=== PATIENT | female | born 1955 | race Caucasian/White ===

== ENCOUNTER 2018-07-06 06:16 | Inpatient (IN) | payer OTHER ==
[2018-07-06] VITALS (15 sets, daily range): BP systolic 124–160; BP diastolic 81–108; PULSE 72–99; RESP 11–32; Ht 162.6 cm; Wt 68.2 kg
[~2018-07-06] VITALS: Ht 162.6 cm; Wt 68.2 kg
[2018-07-06] MEDS ORDERED: CEFAZOLIN 2 GM/50 ML (PMX) 50 ML IVPB SCH (12:30)
[2018-07-06] MEDS ORDERED: SOD CHLORIDE 0.9% 1,000 ML IV SCH (12:30)
[2018-07-06] MEDS ORDERED: ISOSULFAN BLUE 1% 5 ML INJ SC ONE (12:32)
--- NOTE | 2018-07-06 13:25 | PREAC ---
Date/Time of Note Date/Time of Note DATE: 07/06/18 TIME: 13:23 Anesthesia Eval and Record Evaluation Time Pre-Procedure Interview DATE: 07/06/18 TIME: 13:23 Age 62 Sex female NPO: 8 hrs Preoperative diagnosis Breast Cancer Planned procedure Bilateral Mastectomy Past Medical History Past Medical History: Includes Cardio: HTN Pulm: Smoking Hx (one pack per week), COPD Neuro: Other (Neuropathy lower extremities) Hepatic: Other (IBD) Heme: Anemia Surgery & Anesthesia Issues No known issue Meds Anticoagulation: No Beta Roderick within 24 hr: No Reason Beta Roderick not given: Pt. not on B-Roderick No Active Prescriptions or Reported Meds Current Medications Cefazolin Sodium/ Dextrose 50 ml @ 100 mls/hr PRE-OP IVPB ; Start 07/06/18 at 12:30 Sodium Chloride 1,000 ml @ 75 mls/hr [id number] IV ; Start 07/06/18 at 12:30; Stop 07/06/18 at 20:00 Meds reviewed: Yes Allergies Coded Allergies: No Known Drug Allergy (Verified Allergy, Unknown, 07/06/18) Allergies Reviewed: Yes Labs/Studies Labs Reviewed: Reviewed by anesthesiologist Result Diagram: 07/06/18 0848 07/06/18 0848 Laboratory Tests 07/06/18 08:48 test: N/A Studies: ECG (n/a), CXR (No Acute Disease) Pre-procedure Exam Last vitals Vital Signs Date Temp Pulse Resp B/P (MAP) Pulse Ox O2 O2 Flow FiO2 Time Delivery Rate 07/06/18 98.8 90 18 145/97 96 Room Air 13:03 (113) Airway: Adequate mouth opening, Adequate thyromental dist Mallampati: Mallampati II Teeth: Normal Lung: Normal Heart: Normal ASA Physical Status ASA physical status: 3 Emergency: None Planned Anesthetic General/MAC: ETT, LMA Planned Pain Management Parenteral pain med Pre-operative Attestations Prior to commencing anesthesia and surgery, the patient was re-evaluated, there was verification of: *The patient's identity *The results of appropriate recent lab work and preoperative vital signs *The above evaluation not changing prior to induction *Anesthetic plan, risk benefits, alternative and complications discussed with patient/family; questions answered; patient/family understands, accepts and wishes to proceed. GITA LOW MD Jul 06, 2018 13:25
[2018-07-06] MEDS ORDERED: CEFAZOLIN 1 GM INJ ONE (13:27)
[2018-07-06] MEDS ORDERED: PROPOFOL 20 ML ONE (13:27)
[2018-07-06] MEDS ORDERED: ROCURONIUM 50 MG INJ ONE (13:27)
[2018-07-06] MEDS ORDERED: MIDAZOLAM 1 MG/ML 2 ML INJ ONE ×2 (13:28)
[2018-07-06] MEDS ORDERED: FUROSEMIDE 20 MG INJ ONE (13:28)
[2018-07-06] MEDS ORDERED: LABETALOL HCL 20MG INJ IV PRN (13:30)
[2018-07-06] MEDS ORDERED: IPRATROPIUM (NEB) 0.5 MG/2.5 ML AMP HHN PRN (13:30)
[2018-07-06] MEDS ORDERED: ONDANSETRON 4 MG INJ IV PRN ×2 (13:30→15:30)
[2018-07-06] MEDS ORDERED: OXYCODONE/ACETAMINOPHEN (5/325) TAB PO PRN (13:30)
[2018-07-06] MEDS ORDERED: METOCLOPRAMIDE 10 MG INJ IV PRN (13:30)
[2018-07-06] MEDS ORDERED: MEPERIDINE 25 MG INJ IV PRN (13:30)
[2018-07-06] MEDS ORDERED: hydrALAzine 20 MG INJ IV PRN (13:30)
[2018-07-06] MEDS ORDERED: HYDROmorphONE 1 MG/5 ML IV SYRINGE IV PRN ×3 (13:30)
[2018-07-06] MEDS ORDERED: DIPHENHYDRAMINE 50 MG INJ IV PRN (13:30)
[2018-07-06] MEDS ORDERED: ALBUTEROL 0.083% (NEB) 2.5 MG/3 ML AMP HHN PRN (13:30)
[2018-07-06] MEDS ORDERED: FENTAnyl 50 MCG/ML VIAL IV PRN ×2 (13:30)
[2018-07-06] MEDS ORDERED: EPHEDrine SULFATE 50 MG/5 ML SYG IV PRN (13:30)
[2018-07-06] MEDS ORDERED: DEXAMETHASONE 4 MG/ML 5 ML INJ ONE (13:55)
[2018-07-06] MEDS ORDERED: KETOROLAC 30 MG INJ ONE (13:55)
[2018-07-06] MEDS ORDERED: METOCLOPRAMIDE 10 MG INJ ONE (13:55)
[2018-07-06] MEDS ORDERED: ONDANSETRON 4 MG INJ ONE (13:55)
--- NOTE | 2018-07-06 14:05 | RADRPT ---
Vent Rate: 68 bpm RR Interval: 0 msec CO Interval: 112 msec QRS Duration: 86 msec QT Interval: 446 msec QTC Interval: 474 msec P-R-T [place]: 0 - 28 - -79 degrees Normal sinus rhythm T wave abnormality, consider anterior ischemia Prolonged QT Abnormal ECG Electronically Signed By: Harjinder Rao
[2018-07-06] MEDS ORDERED: EPHEDrine SULFATE 50 MG/5 ML SYG ONE (14:53)
[2018-07-06] MEDS ORDERED: GLYCOPYRROLATE 0.4 MG INJ ONE (15:19)
[2018-07-06] MEDS ORDERED: NEOSTIGMINE 10 MG INJ ONE (15:19)
--- NOTE | 2018-07-06 15:25 | SIPON ---
Date/Time of Note Date/Time of Note DATE: 07/06/18 TIME: 15:23 Operative Report Preoperative Diagnosis Bilateral breast cancer and infected presternal cystic mass Postoperative Diagnosis Same Operation/Procedure Performed Left partial mastectomy needle directed and axillary dissection utilizing sentinel lymph node technique #2 right partial mastectomy needle directed and axillary dissection using sentinel lymph node technique #3 is resection of presternal cystic mass with local skin flap advancement closure Surgeon see signature line produce assistant Dr Miles Anesthesia: general Estimated blood loss: 100 - 150 ml's Transfusion Required none Specimen Left partial mastectomy specimen with sentinel lymph node and additional axillary nodes then right partial mastectomy specimen with sentinel lymph node and additional axillary nodes then presternal mass with attached skin Grafts/Implants none Complications none CLARENCE KING MD Jul 06, 2018 15:25
[2018-07-06] MEDS ORDERED: ACETAMINOPHEN 1000MG/100ML IV 100 ML IVPB PRN (15:30)
--- NOTE | 2018-07-06 15:42 | PAC ---
Date/Time of Note Date/Time of Note DATE: 07/06/18 TIME: 15:42 Post-Anesthesia Notes Post-Anesthesia Note Last documented vital signs Vital Signs Date Temp Pulse Resp B/P (MAP) Pulse Ox O2 O2 Flow FiO2 Time Delivery Rate 07/06/18 98.8 90 18 145/97 96 Room Air 15:33 (113) Activity: WNL Respiratory function: WNL Cardiovascular function: WNL Mental status: Baseline Pain reasonably controlled: Yes Hydration appropriate: Yes Nausea/Vomiting absent: Yes GITA LOW MD Jul 06, 2018 15:42
--- NOTE | 2018-07-06 16:38 | OPR ---
DATE OF OPERATION: 07/06/2018 PREOPERATIVE DIAGNOSES: 1. Invasive cancer, left breast. 2. Invasive cancer, right breast. 3. Presternal cystic mass. POSTOPERATIVE DIAGNOSES: 1. Invasive cancer, left breast. 2. Invasive cancer, right breast. 3. Presternal cystic mass. PROCEDURES: 1. Left needle-directed partial mastectomy with axillary dissection utilizing sentinel lymph node te chnique. 2. Right needle-directed partial mastectomy with axillary dissection utilizing sentinel lymph node t echnique. 3. Resection of presternal chest mass with local skin flap advancement closure. ANESTHESIA: General. ANESTHESIOLOGIST: . SURGEON: Salas Webber MD COMPLAINT EVALUATION SUPERVISOR: Tien Miles MD INDICATIONS FOR PROCEDURE: The patient is an unfortunate 62-year-old female who underwent screening mammography and was found to have bilateral breast cancers. In addition, she had a cystic mass with overlying cellulitis in the presternal region consistent with probable infected epidermal inclusion c yst. She was counseled on the benefit of bilateral breast surgery to remove the cancer and resection of the mass. She consented and was scheduled for surgery. DESCRIPTION OF PROCEDURE: The patient was brought to the operating theater, placed under general ane sthesia. The breast and axillary regions were prepped and draped bilaterally in the usual sterile fa shion. Attention was first directed to the left side. Approximately 3 to 4 mL of 1% Lymphazurin wendy e dye were injected peritumorally. The breast was gently massaged for 12 minutes. At this point, a 3 to 4 cm incision was made in the left axillary hairline. Subcutaneous tissue was dissected with ca utery through the clavipectoral fascia. A dye-stained lymphatic was identified and traced to a senti rj node. This node was removed; however, there were several other additional highly suspicious larg e lymph nodes. Therefore, Dr. Webber made the decision to proceed with at least a level 1 dissection with blunt dissection along the chest wall. The long thoracic nerve was identified and kept out of h arm's way. More superiorly, the axillary vein was identified, dissected from medial to lateral. Pos terolaterally, the latissimus dorsi muscle was identified throughout its course. Level 1 and level [address] using the Voyant device. The specimen was removed and sent for perm anent pathologic analysis. The wound was irrigated and minimal residual bleeding was controlled with cautery. A #10 [place] Gareth-Meyers drain was then brought through the left mid axillary line, cut to size, laid within the axilla. It was secured in place with 2-0 nylon suture in a standard fashion . The skin incision was closed with a 4-0 Vicryl suture in subcuticular fashion. Attention was then directed to performing the partial mastectomy. The localization wires were in the upper outer quadrant. There was also a palpable mass in this area. An elliptical incision was made including a portion of the skin over the mass. Subcutaneous tissue was dissected with cautery. Ski n edges were elevated with skin hooks and wide circumferential dissection of the tissue associated wi th the mass then took place down to the pectoralis major fascia. The fascia and the overlying breast mass were then transected off of the pectoralis major muscle using cautery. Specimen was removed, o riented, sent for radiographic confirmation of capture. Capture was confirmed. Specimen was then se nt for permanent pathologic analysis. The wound was irrigated. Residual bleeding was controlled wit h cautery. The skin was then reapproximated with a deep dermal layer of 4-0 Vicryl sutures in interr upted fashion, followed by final skin approximation with 5-0 PDS sutures in subcuticular fashion. De rmabond was then applied to both incisions. Attention was then directed to the right side. Approximately 3 to 4 mL of 1% Lymphazurin blue dye we re injected peritumorally. The breast was massaged for 12 minutes. At this point, a 3 to 4 cm incis ion was made in the left axillary hairline. Subcutaneous tissue was dissected with cautery down thro ugh the clavipectoral fascia. A dye-stained lymphatic was traced to a sentinel node. The sentinel n ode was associated with several other additional somewhat enlarged nodes. [place] node and these ad ditional nodes were then resected using LigaSure device and the specimen was sent for permanent patho logic analysis. Wound was irrigated. Minimal bleeding was controlled with cautery. A #10 [place] Ja ckson-Meyers drain was then brought through the right mid axillary line, cut to size and laid within t he axilla. It was secured in place with 2-0 nylon suture in a standard fashion and the skin incision was then reapproximated with 4-0 Vicryl suture in subcuticular fashion. Attention was then directed to performing the partial mastectomy. Bracketing technique utilizing 3 w ires were then used to identify the location of the tumor, which was in the lower outer quadrant. Cu rvilinear incision was made in this area. Subcutaneous tissue was dissected with cautery. Skin edge s were elevated with skin hooks and wide circumferential dissection of the tissue associated with the mass took place down to the pectoralis major fascia. The mass and the fascia were then dissected of f of the pectoralis major muscle. Specimen was oriented and sent for radiographic confirmation of ca pture. Capture was confirmed. The specimen was then sent for permanent pathologic analysis. The wo und was irrigated and the residual bleeding was controlled with cautery. Decision was made to place a #10 [place] Gareth-Meyers drain into the wound cavity. This was done by bringing it through the rig ht mid axillary line, cut to size and lying it within the wound. The drain was then secured in place with 2-0 nylon suture in the standard fashion. The skin was reapproximated with a deep dermal layer , 4-0 Vicryl sutures in interrupted fashion, followed by final skin approximation with 5-0 PDS suture s in subcuticular fashion and Dermabond was then applied to both the axillary and the breast incision . Attention was then directed to resecting the cystic mass overlying the sternum. Wide elliptical inci myra was made around it with 15 blade scalpel. Subcutaneous tissue was dissected with cautery to mitchell p within the subcutaneous space. The mass was then transected from the subcutaneous space and sent f or permanent pathologic analysis. Wound was irrigated. Residual bleeding was controlled with cauter y. Due to the large defect, primary closure was not possible; therefore superior and inferior skin f laps were created with cautery. The flaps were rotated together and a [place] drain was placed into the wound cavity and then the skin incision was reapproximated with multiple 2-0 nylon sutures in a v ertical mattress fashion and the drain was sutured to the skin of the chest wall, also with a 2-0 nyl on suture. Sterile dressing was then applied. The patient tolerated all 3 procedures very well. Th e total blood loss was approximately 100 mL. There were no complications and the patient was transpo rted in stable condition to the recovery room where circumferential compression dressing was applied. Dictated By: SALAS BAEZ/LISA Conf#: [id number] DID#: [id number]
[2018-07-06] MEDS: D5W-0.45 NACL + KCL 20 MEQ 1,000 ML IV SCH (18:00)
[2018-07-06] MEDS: ZOLPIDEM 5 MG TAB PO PRN (22:38)
--- NOTE | 2018-07-06 23:37 | HP ---
DATE OF ADMISSION: 07/06/2018 CHIEF COMPLAINT AND HISTORY OF PRESENT ILLNESS: The patient is a 62-year-old female who was seen by Dr. King as an outpatient. The patient apparently had a screening mammography and was found to have bilateral breast cancer. The patient also had a presternal cystic mass and was brought in to [facility] today and underwent left needle-directed partial mastectomy with axillary dissection right needle- directed partial mastectomy with axillary dissection, resection of presternal chest mass with local s kin flap advancement closure. The patient has significant postoperative pain and is waiting for furt her evaluation and management. The patient denies history of headache. No history of recent fever o r chills. No history of abdominal pain. No history of vomiting. No history of focal leg weakness. No history of headache, dizziness, syncope. The patient denies history of recent urinary or bowel c omplaint. Respirations were unremarkable. PAST SURGICAL HISTORY: As above. The patient is status post oral surgery in addition to recent surg sheeba. SOCIAL HISTORY: History of smoking for last several years, but she states she used to smoke a variab le number of cigarettes, mostly about 5 cigarettes a day. FAMILY HISTORY: Mother had breast cancer. ALLERGIES: NONE. PHYSICAL EXAMINATION: GENERAL: The patient is awake, alert, fairly oriented. VITAL SIGNS: Temperature 98.3, pulse of 99, respirations 16, blood pressure 124/81, O2 saturation 97 % on 2 liters nasal cannula. HEENT: No eye discharge or redness. Conjunctivae and lids are normal. Oropharynx grossly negative. NECK: No mass. CHEST: Fairly clear. CARDIOVASCULAR: S1, S2 normal, no murmur. ABDOMEN: Soft, nondistended, nontender. EXTREMITIES: No edema. NEUROLOGIC: The patient is awake, alert, fairly oriented with no gross focal deficit. LABORATORY DATA: WBC 6.2, hemoglobin 8.5, MCV 109, platelet 220. Chemistry: Sodium 140, potassium 3.7, BUN 10, creatinine 1.1, AST 74, ALT 26, alkaline phosphatase 212, albumin 2.9. Chest x-ray done this morning was unremarkable. IMPRESSION: 1. Bilateral breast cancer status post-surgery. 2. Chest wall mass, status post resection. 3. Macrocytic anemia. PLAN: The patient admitted on medical floor. The patient started on clear liquid diet, which will b e advanced as tolerated. For pain control, the patient will be given Tylenol, [place] and IV morphine. I will also order Vitamin B12, folate and TSH. If the patient continues to do well, she will be di scharged home in 1 to 2 days. For macrocytic anemia, the patient will follow up with Dr. Cutler who is the patient's medical oncologist also. We will use SCD for DVT prophylaxis. Dictated By: RAN FELIZ/LISA Conf#: [id number] DID#: [id number] CC: CLARENCE KING MD;*EndCC*
[2018-07-07 02:32] VITALS: BP 132/79; PULSE 91; RESP 16
[2018-07-07] MEDS: D5W-0.45 NACL + KCL 20 MEQ 1,000 ML IV SCH ×3 (04:02→21:58)
[2018-07-07 07:30] VITALS: BP 134/86; PULSE 80; RESP 18
[2018-07-07] MEDS: morphine 2 MG INJ IV PRN ×3 (09:37→20:21)
[2018-07-07 14:12] VITALS: BP 119/82; PULSE 91; RESP 18
[2018-07-07] MEDS: CEFAZOLIN 1 GM/50 ML (PMX) 50 ML IVPB SCH ×2 (17:00→23:44)
--- NOTE | 2018-07-07 19:19 | PN ---
Date/Time of Note Date/Time of Note DATE: 07/07/18 TIME: 19:11 Assessment/Plan VTE Prophylaxis Risk score (from [facility])>0 risk: 11 SCD applied (from [facility]): Yes Pharmacological prophylaxis: NA/contraindicated Pharm contraindication: surgical contra Lines/Catheters IV Catheter Type (from [facility]): Peripheral IV Urinary Cath still in place: No Assessment/Plan Hospital Course Patient complains of generalized weakness, hemoglobin is 7.2, large amount of serous drainage from MAYO, continue to monitor hemoglobin we will transfuse as needed. Assessment/Plan - Bilateral breast cancer, status post bilateral partial mastectomies. Continue IV fluids and antibiotic. - Chest wall mass, status post resection. - Macrocytic anemia. Monitor H&H will transfuse as needed. Further recommendations based on clinical course. Plan of care discussed with Dr. Goodwin. Result Diagram: 07/07/18 0530 07/06/18 0848 Results 24hrs Laboratory Tests Test 07/07/18 05:30 White Blood Count 6.5 Red Blood Count 2.02 L Hemoglobin 7.2 L Hematocrit 22.9 L Mean Corpuscular Volume 113.4 H Mean Corpuscular Hemoglobin 35.6 H Mean Corpuscular Hemoglobin Concent 31.4 L Red Cell Distribution Width 17.2 H Platelet Count 186 Mean Platelet Volume 10.3 Immature Granulocytes % 0.600 H Neutrophils % 77.8 H Lymphocytes % 12.9 L Monocytes % 8.5 Eosinophils % 0.0 Basophils % 0.2 Nucleated Red Blood Cells % 0.0 Immature Granulocytes # 0.040 H Neutrophils # 5.0 Lymphocytes # 0.8 Monocytes # 0.6 Eosinophils # 0.0 Basophils # 0.0 Nucleated Red Blood Cells # 0.0 Iron Level 31 L Total Iron Binding Capacity 105 L Percent Iron Saturation 30 Ferritin 668.0 H Vitamin B12 Level 259 Folate 4.0 Thyroid Stimulating Hormone (TSH) 1.620 Exam/Review of Systems Exam Vitals Vital Signs Date Temp Pulse Resp B/P (MAP) Pulse Ox O2 O2 Flow FiO2 Time Delivery Rate 07/07/18 98.6 91 18 119/82 100 14:12 (94) 07/07/18 Nasal 2.0 09:00 Cannula Intake and Output 07/06/18 07/06/18 07/07/18 1515:00 23:00 07:00 IntakeIntake Total 1720 ml 1118 ml OutputOutput Total 70 ml 135 ml BalanceBalance 1650 ml 983 ml Constitutional: alert, oriented Neck: supple Respiratory: clear to auscultation Cardiovascular: nl pulses Gastrointestinal: soft, non-tender Extremities: normal pulses Neurological: nl mental status Skin: other (Status post bilateral mastectomies) Results Results 24hrs Laboratory Tests Test 07/07/18 05:30 White Blood Count 6.5 Red Blood Count 2.02 L Hemoglobin 7.2 L Hematocrit 22.9 L Mean Corpuscular Volume 113.4 H Mean Corpuscular Hemoglobin 35.6 H Mean Corpuscular Hemoglobin Concent 31.4 L Red Cell Distribution Width 17.2 H Platelet Count 186 Mean Platelet Volume 10.3 Immature Granulocytes % 0.600 H Neutrophils % 77.8 H Lymphocytes % 12.9 L Monocytes % 8.5 Eosinophils % 0.0 Basophils % 0.2 Nucleated Red Blood Cells % 0.0 Immature Granulocytes # 0.040 H Neutrophils # 5.0 Lymphocytes # 0.8 Monocytes # 0.6 Eosinophils # 0.0 Basophils # 0.0 Nucleated Red Blood Cells # 0.0 Iron Level 31 L Total Iron Binding Capacity 105 L Percent Iron Saturation 30 Ferritin 668.0 H Vitamin B12 Level 259 Folate 4.0 Thyroid Stimulating Hormone (TSH) 1.620 Medications Medication Current Medications Ondansetron HCl (Zofran Inj) 4 mg Q6H PRN IV NAUSEA AND/OR VOMITING; Start 07/06/18 at 15:30 Potassium Chloride/Dextrose/ Sod Cl 1,000 ml @ 125 mls/hr Q8H IV Last administered on 07/07/18at 13:38; Admin Dose 125 MLS/HR; Start 07/06/18 at 15:25 Morphine Sulfate (morphine) 2 mg Q1H PRN IV PAIN Last administered on 07/07/18at 12:39; Admin Dose 2 MG; Start 07/06/18 at 15:30 Zolpidem Tartrate (Ambien) 5 mg HS PRN PO INSOMNIA Last administered on 07/06/18at 22:38; Admin Dose 5 MG; Start 07/06/18 at 22:30 Cefazolin Sodium 50 ml @ 100 mls/hr Q8H IVPB Last administered on 07/07/18at 17:00; Admin Dose 100 MLS/HR; Start 07/07/18 at 16:00 GABRIEL GARCIA Jul 07, 2018 19:19
[2018-07-07 19:55] VITALS: BP 146/90; PULSE 83; RESP 18
[2018-07-07] MEDS: ZOLPIDEM 5 MG TAB PO PRN (22:40)
[2018-07-08 00:03] VITALS: BP 132/81; PULSE 81; RESP 18
[2018-07-08 04:32] VITALS: BP 141/96; PULSE 94; RESP 18
[2018-07-08] MEDS: D5W-0.45 NACL + KCL 20 MEQ 1,000 ML IV SCH ×4 (07:10→21:00)
[2018-07-08 07:38] VITALS: BP 117/82; PULSE 77; RESP 18
[2018-07-08] MEDS: morphine 2 MG INJ IV PRN ×2 (08:35→11:40)
[2018-07-08] MEDS: CEFAZOLIN 1 GM/50 ML (PMX) 50 ML IVPB SCH ×3 (08:35→23:42)
--- NOTE | 2018-07-08 11:55 | PN ---
DATE: 07/08/2018 Postop day #2 status post bilateral partial mastectomy with axillary dissection for bilateral cancer of breast and also wide excision of the infected dermoid cyst in the anterior superior chest wall. SUBJECTIVE: Complains of pain mostly at the site of the resection of the anterior chest wall mass. OBJECTIVE: GENERAL: Awake, alert, oriented. VITAL SIGNS: Temperature maximum 98.3, heart rate 77, respiration 18, blood pressure 117/82, saturat ion 97% on 2 liters nasal cannula. HEART: Regular. LUNGS: Clear. ABDOMEN: Soft. Dressing is intact. Gareth-Meyers draining serosanguineous. Dressing over the ante rior superior chest wall at the site of excision of the infected dermoid cyst was changed. It was so aked the sponges. There is a [place] drain subcutaneously. The dressing was changed and new dressin g was applied. LABORATORY DATA: WBC 5400 with 61% segmented, hemoglobin 7.3, hematocrit 33.5. Chemistry: BUN 12, creatinine has increased to 1.29, yesterday was 1.10. Estimated GFR is 42 liters per lab calculation . ASSESSMENT AND PLAN: The patient is stable, but the dressing over the anterior superior chest wall s hould be changed daily and the patient states that she cannot do it when she cannot see it. Therefor e, requested from the RN to make arrangements for home health. As soon as arrangements for home heal th are made, the patient can be discharged either tomorrow or Tuesday. The patient is getting antibio tic and should be discharged with antibiotic Keflex 500 mg p.o. q.6 hours. Dictated By: TWILA CHU MD PS/NTS Conf#: [id number] DID#: [id number] CC: CLARENCE KING MD;*EndCC*
--- NOTE | 2018-07-08 12:39 | PN ---
Date/Time of Note Date/Time of Note DATE: 07/08/18 TIME: 12:39 Assessment/Plan VTE Prophylaxis Risk score (from Ns)>0 risk: 11 SCD applied (from [facility]sg): Yes Lines/Catheters IV Catheter Type (from Nrs): Peripheral IV Urinary Cath still in place: No Assessment/Plan Assessment/Plan - Bilateral breast cancer, status post bilateral partial mastectomies. Continue IV fluids and antibiotic. - Chest wall mass, status post resection. - Macrocytic anemia. Monitor H&H will transfuse as needed. -chad Further recommendations based on clinical course. Plan of care discussed with Dr. Goodwin. Result Diagram: 07/08/1842 07/08/1842 Results 24hrs Laboratory Tests Test 07/08/18 05:42 White Blood Count 5.4 Red Blood Count 2.04 L Hemoglobin 7.3 L Hematocrit 23.5 L Mean Corpuscular Volume 115.2 H Mean Corpuscular Hemoglobin 35.8 H Mean Corpuscular Hemoglobin Concent 31.1 L Red Cell Distribution Width 17.1 H Platelet Count 172 Mean Platelet Volume 10.3 Immature Granulocytes % 0.600 H Neutrophils % 61.8 Lymphocytes % 28.2 Monocytes % 8.3 Eosinophils % 0.7 Basophils % 0.4 Nucleated Red Blood Cells % 0.0 Immature Granulocytes # 0.030 Neutrophils # 3.4 Lymphocytes # 1.5 Monocytes # 0.5 Eosinophils # 0.0 Basophils # 0.0 Nucleated Red Blood Cells # 0.0 Sodium Level 137 Potassium Level 4.9 Chloride Level 104 Carbon Dioxide Level 27 Anion Gap 6 Blood Urea Nitrogen 12 Creatinine 1.29 H Est Glomerular Filtrat Rate mL/min 42 L Glucose Level 75 Calcium Level 8.5 Exam/Review of Systems Exam Vitals Vital Signs Date Temp Pulse Resp B/P (MAP) Pulse Ox O2 O2 Flow FiO2 Time Delivery Rate 07/08/18 Nasal 2.0 08:20 Cannula 07/08/18 98.3 77 18 117/82 97 07:38 (94) Intake and Output 07/07/18 07/07/18 07/08/18 1515:00 23:00 07:00 IntakeIntake Total 615 ml 410 ml OutputOutput Total 185 ml 110 ml BalanceBalance 615 ml -185 ml 300 ml Results Results 24hrs Laboratory Tests Test 07/08/18 05:42 White Blood Count 5.4 Red Blood Count 2.04 L Hemoglobin 7.3 L Hematocrit 23.5 L Mean Corpuscular Volume 115.2 H Mean Corpuscular Hemoglobin 35.8 H Mean Corpuscular Hemoglobin Concent 31.1 L Red Cell Distribution Width 17.1 H Platelet Count 172 Mean Platelet Volume 10.3 Immature Granulocytes % 0.600 H Neutrophils % 61.8 Lymphocytes % 28.2 Monocytes % 8.3 Eosinophils % 0.7 Basophils % 0.4 Nucleated Red Blood Cells % 0.0 Immature Granulocytes # 0.030 Neutrophils # 3.4 Lymphocytes # 1.5 Monocytes # 0.5 Eosinophils # 0.0 Basophils # 0.0 Nucleated Red Blood Cells # 0.0 Sodium Level 137 Potassium Level 4.9 Chloride Level 104 Carbon Dioxide Level 27 Anion Gap 6 Blood Urea Nitrogen 12 Creatinine 1.29 H Est Glomerular Filtrat Rate mL/min 42 L Glucose Level 75 Calcium Level 8.5 Medications Medication Current Medications Ondansetron HCl (Zofran Inj) 4 mg Q6H PRN IV NAUSEA AND/OR VOMITING; Start 07/06/18 at 15:30 Potassium Chloride/Dextrose/ Sod Cl 1,000 ml @ 125 mls/hr Q8H IV Last admini stered on 07/08/18at 07:10; Admin Dose 125 MLS/HR; Start 07/06/18 at 15:25 Zolpidem Tartrate (Ambien) 5 mg HS PRN PO INSOMNIA Last administered on 07/07/18at 22:40; Admin Dose 5 MG; Start 07/06/18 at 22:30 Cefazolin Sodium 50 ml @ 100 mls/hr Q8H IVPB Last administered on 07/08/18at 08:35; Admin Dose 100 MLS/HR; Start 07/07/18 at 16:00 Acetaminophen/ Hydrocodone Bitart ([place] (5/325)) 1 tab Q4H PRN PO MODERATE PAIN LEVEL 4-6; Start 07/07/18 at 19:30 ELIJAH MALDONADO Jul 08, 2018 12:39
[2018-07-08 15:27] VITALS: BP 135/90; PULSE 86; RESP 17
[2018-07-08] MEDS: HYDROCODONE/APAP (5/325) TAB PO PRN ×2 (16:16→20:30)
[2018-07-08 20:09] VITALS: BP 112/81; PULSE 77; RESP 18
[2018-07-08] MEDS: ZOLPIDEM 5 MG TAB PO PRN (21:43)
[2018-07-09] MEDS: HYDROCODONE/APAP (5/325) TAB PO PRN ×6 (00:39→20:38)
[2018-07-09 01:25] VITALS: BP 141/72; PULSE 75; RESP 18
[2018-07-09] MEDS: D5W-0.45 NACL + KCL 20 MEQ 1,000 ML IV SCH ×4 (02:42→21:46)
[2018-07-09 08:02] VITALS: BP 128/98; PULSE 73; RESP 16
[2018-07-09] MEDS: CEFAZOLIN 1 GM/50 ML (PMX) 50 ML IVPB SCH ×3 (08:40→23:20)
--- NOTE | 2018-07-09 12:04 | PN ---
DATE: 07/09/2018 SUBJECTIVE: Postop day #3, status post bilateral partial mastectomy with axillary dissection for vane ateral cancer and wide excision of an infected dermoid cyst, anterior, superior chest wall. No speci fic complaint. OBJECTIVE: VITAL SIGNS: Temperature 98.4, heart rate 73, respirations 16, blood pressure 128/98, saturation on room air. LABORATORY DATA: Four Gareth-Meyers drains in place. On the left side, they have drained 210 mL tot ally. Serous fluid on the right side 220 mL total serous fluid. The dressing over the incision and the site of removal of the dermoid cyst was changed. Fewer sponges were soaked there is a [place]ie dr parra subcutaneously. Last WBC 4300, hemoglobin is 7, hematocrit stable since 2 days ago. The patient has macrocytic anemia and treatment should be addressed by the medical service. From surgical point of view, we have requested home health to be arranged for changing the dressing on the anterior supe rior chest wall wound site of removal of the infected dermoid cyst. Yet they have not been able to m cecile the arrangements. Patient is going to stay in the hospital as long as needed to can make arrange ments for that. Patient is getting antibiotic as well. We will continue to follow the patient. Dictated By: TWILA CHU MD PS/NTS Conf#: [id number] DID#: [id number] CC: CLARENCE KING MD;*EndCC*
--- NOTE | 2018-07-09 12:15 | PN ---
Date/Time of Note Date/Time of Note DATE: 07/09/18 TIME: 12:13 Assessment/Plan VTE Prophylaxis Risk score (from Ns)>0 risk: 2 SCD applied (from Nsg): Yes Lines/Catheters IV Catheter Type (from Nrs): Peripheral IV Urinary Cath still in place: No Assessment/Plan Assessment/Plan - Bilateral breast cancer, status post bilateral partial mastectomies. Continue IV fluids and antibiotic. - Chest wall mass, status post resection. - Macrocytic anemia. Monitor H&H will transfuse as needed. -chad Further recommendations based on clinical course. Plan of care discussed with Dr. Goodwin. Result Diagram: 07/09/18 0601 07/09/18 0601 Results 24hrs Laboratory Tests Test 07/09/18 06:01 White Blood Count 4.3 #L Red Blood Count 2.06 L Hemoglobin 7.0 L Hematocrit 23.6 L Mean Corpuscular Volume 114.6 H Mean Corpuscular Hemoglobin 34.0 H Mean Corpuscular Hemoglobin Concent 29.7 L Red Cell Distribution Width 16.3 H Platelet Count 154 Mean Platelet Volume 10.4 Immature Granulocytes % 0.700 H Neutrophils % 51.2 Lymphocytes % 35.2 Monocytes % 9.8 Eosinophils % 1.9 Basophils % 1.2 Nucleated Red Blood Cells % 0.0 Immature Granulocytes # 0.030 Neutrophils # 2.2 Lymphocytes # 1.5 Monocytes # 0.4 Eosinophils # 0.1 Basophils # 0.1 Nucleated Red Blood Cells # 0.0 Sodium Level 137 Potassium Level 5.1 Chloride Level 108 Carbon Dioxide Level 26 Anion Gap 3 L Blood Urea Nitrogen 10 Creatinine 1.07 H Est Glomerular Filtrat Rate mL/min 52 L Glucose Level 75 Calcium Level 8.3 L Subjective 24 Hr Interval Summary Free Text/Dictation Cr -1.07 today Respiratory: no complaints Cardiovascular: no complaints Gastrointestinal: no complaints Musculoskeletal: no complaints Skin: no complaints Neurologic: no complaints Endocrine: no complaints Exam/Review of Systems Exam Vitals Vital Signs Date Temp Pulse Resp B/P (MAP) Pulse Ox O2 O2 Flow FiO2 Time Delivery Rate 07/09/18 98.4 73 16 128/98 99 08:02 (108) 07/08/18 Room Air 15:27 07/08/18 2.0 08:20 Intake and Output 07/08/18 07/08/18 07/09/18 1515:00 23:00 07:00 IntakeIntake Total 1770 ml 1410 ml 1545 ml OutputOutput Total 510 ml 720 ml 590 ml BalanceBalance 1260 ml 690 ml 955 ml Constitutional: alert, well developed Psych: nl mood/affect ENMT: nl external ears & nose Respiratory: clear to auscultation Gastrointestinal: soft, non-tender Musculoskeletal: nl extremities to inspection Extremities: normal pulses Neurological: nl speech Lymph: nontender Results Results 24hrs Laboratory Tests Test 07/09/18 06:01 White Blood Count 4.3 #L Red Blood Count 2.06 L Hemoglobin 7.0 L Hematocrit 23.6 L Mean Corpuscular Volume 114.6 H Mean Corpuscular Hemoglobin 34.0 H Mean Corpuscular Hemoglobin Concent 29.7 L Red Cell Distribution Width 16.3 H Platelet Count 154 Mean Platelet Volume 10.4 Immature Granulocytes % 0.700 H Neutrophils % 51.2 Lymphocytes % 35.2 Monocytes % 9.8 Eosinophils % 1.9 Basophils % 1.2 Nucleated Red Blood Cells % 0.0 Immature Granulocytes # 0.030 Neutrophils # 2.2 Lymphocytes # 1.5 Monocytes # 0.4 Eosinophils # 0.1 Basophils # 0.1 Nucleated Red Blood Cells # 0.0 Sodium Level 137 Potassium Level 5.1 Chloride Level 108 Carbon Dioxide Level 26 Anion Gap 3 L Blood Urea Nitrogen 10 Creatinine 1.07 H Est Glomerular Filtrat Rate mL/min 52 L Glucose Level 75 Calcium Level 8.3 L Medications Medication Current Medications Ondansetron HCl (Zofran Inj) 4 mg Q6H PRN IV NAUSEA AND/OR VOMITING; Start 07/06/18 at 15:30 Potassium Chloride/Dextrose/ Sod Cl 1,000 ml @ 125 mls/hr Q8H IV Last administered on 07/09/18at 02:42; Admin Dose 125 MLS/HR; Start 07/06/18 at 15:25 Zolpidem Tartrate (Ambien) 5 mg HS PRN PO INSOMNIA Last administered on 07/08/18at 21:43; Admin Dose 5 MG; Start 07/06/18 at 22:30 Cefazolin Sodium 50 ml @ 100 mls/hr Q8H IVPB Last administered on 07/09/18at 08:40; Admin Dose 100 MLS/HR; Start 07/07/18 at 16:00 Acetaminophen/ Hydrocodone Bitart ([place] (5/325)) 1 tab Q4H PRN PO MODERATE PAIN LEVEL 4-6 Last administered on 07/09/18at 08:39; Admin Dose 1 TAB; Start 07/07/18 at 19:30 ELIJAH MALDONADO Jul 09, 2018 12:15
--- NOTE | 2018-07-09 12:18 | PDOCDIS ---
Discharge Instructions CONDITION Mexbr4Dg Patient Condition: Nbusk2r Stable HOME CARE INSTRUCTIONS: [id number] Diet Instructions: Mbwui2a ACTIVITY: [id number] Activity Restrictions: Jmcgq2m Slowly Increase Activity Rest between Activity Avoid heavy lifting Do not Drive Do not operate Machinery Do not operate Power Tool Cutef1Qm Bathing Restrictions: Llpgz2u Sponge Bath FOLLOW UP/APPOINTMENTS Follow-up Plan FU with Primary MD x 1 week FU with surgeon as recommended Call 911 or go to the nearest hospital if symptoms get worse. Patient verbalized understanding. Dw Dr GUSMAN/ Staff ELIJAH MALDONADO Jul 09, 2018 12:18
[2018-07-09] MEDS ORDERED: CEPH-443 PO (12:21)
[2018-07-09] MEDS ORDERED: HYDR-4011 PO (12:21)
--- NOTE | 2018-07-09 13:58 | PN ---
Date/Time of Note Date/Time of Note DATE: 07/09/18 TIME: 13:56 Assessment/Plan VTE Prophylaxis Risk score [place]from [facility] [place] risk: 2 SCD applied (from [facility] [place]): Yes SCD contraindicated: other Pharm contraindication: other Lines/Catheters IV C[facility]ter Type (from [facility]): Peripheral IV Urinary Cath still in place: No Assessment/Plan Assessment/Plan - Bilateral breast cancer, status post bilateral partial mastectomies. Continue IV fluids and antibiotic. - Chest wall mass, status post resection. - Macrocytic anemia. Monitor H&H will transfuse as needed. -chad Further recommendations based on clinical course. Plan of care discussed with Dr. Goodwin. Result Diagram: 07/09/18 0601 07/09/18 0601 Results 24hrs Laboratory Tests Test 07/09/18 06:01 White Blood Count 4.3 #L Red Blood Count 2.06 L Hemoglobin 7.0 L Hematocrit 23.6 L Mean Corpuscular Volume 114.6 H Mean Corpuscular Hemoglobin 34.0 H Mean Corpuscular Hemoglobin Concent 29.7 L Red Cell Distribution Width 16.3 H Platelet Count 154 Mean Platelet Volume 10.4 Immature Granulocytes % 0.700 H Neutrophils % 51.2 Lymphocytes % 35.2 Monocytes % 9.8 Eosinophils % 1.9 Basophils % 1.2 Nucleated Red Blood Cells % 0.0 Immature Granulocytes # 0.030 Neutrophils # 2.2 Lymphocytes # 1.5 Monocytes # 0.4 Eosinophils # 0.1 Basophils # 0.1 Nucleated Red Blood Cells # 0.0 Sodium Level 137 Potassium Level 5.1 Chloride Level 108 Carbon Dioxide Level 26 Anion Gap 3 L Blood Urea Nitrogen 10 Creatinine 1.07 H Est Glomerular Filtrat Rate mL/min 52 L Glucose Level 75 Calcium Level 8.3 L Subjective 24 Hr Interval Summary Respiratory: no complaints Cardiovascular: no complaints Gastrointestinal: no complaints Musculoskeletal: no complaints Skin: no complaints Neurologic: no complaints Endocrine: no complaints Lymphatic: no complaints Psychological: nl mood/affect Immunologic: no complaints Exam/Review of Systems Exam Vitals Vital Signs Date Temp Pulse Resp B/P (MAP) Pulse Ox O2 O2 Flow FiO2 Time Delivery Rate 07/09/18 98.4 73 16 128/98 99 08:02 (108) 07/08/18 Room Air 15:27 07/08/18 2.0 08:20 Intake and Output 07/08/18 07/08/18 07/09/18 1515:00 23:00 07:00 IntakeIntake Total 1770 ml 1410 ml 1545 ml OutputOutput Total 510 ml 720 ml 590 ml BalanceBalance 1260 ml 690 ml 955 ml Constitutional: alert, well developed Psych: nl mood/affect Eyes: EOMI, nl lids, nl sclera Neck: non-tender Respiratory: diminished breath sounds Cardiovascular: nl pulses, other Gastrointestinal: soft, non-tender Musculoskeletal: nl extremities to inspection Extremities: normal pulses Neurological: nl speech, other Skin: nl turgor Lymph: nontender Results Results 24hrs Laboratory Tests Test 07/09/18 06:01 White Blood Count 4.3 #L Red Blood Count 2.06 L Hemoglobin 7.0 L Hematocrit 23.6 L Mean Corpuscular Volume 114.6 H Mean Corpuscular Hemoglobin 34.0 H Mean Corpuscular Hemoglobin Concent 29.7 L Red Cell Distribution Width 16.3 H Platelet Count 154 Mean Platelet Volume 10.4 Immature Granulocytes % 0.700 H Neutrophils % 51.2 Lymphocytes % 35.2 Monocytes % 9.8 Eosinophils % 1.9 Basophils % 1.2 Nucleated Red Blood Cells % 0.0 Immature Granulocytes # 0.030 Neutrophils # 2.2 Lymphocytes # 1.5 Monocytes # 0.4 Eosinophils # 0.1 Basophils # 0.1 Nucleated Red Blood Cells # 0.0 Sodium Level 137 Potassium Level 5.1 Chloride Level 108 Carbon Dioxide Level 26 Anion Gap 3 L Blood Urea Nitrogen 10 Creatinine 1.07 H Est Glomerular Filtrat Rate mL/min 52 L Glucose Level 75 Calcium Level 8.3 L Medications Medication Current Medications Ondansetron HCl (Zofran Inj) 4 mg Q6H PRN IV NAUSEA AND/OR VOMITING; Start 07/06/18 at 15:30 Potassium Chloride/Dextrose/ Sod Cl 1,000 ml @ 125 mls/hr Q8H IV Last administered on 07/09/18at 12:55; Admin Dose 125 MLS/HR; Start 07/06/18 at 15:25 Zolpidem Tartrate (Ambien) 5 mg HS PRN PO INSOMNIA Last administered on 07/08/18at 21:43; Admin Dose 5 MG; Start 07/06/18 at 22:30 Cefazolin Sodium 50 ml @ 100 mls/hr Q8H IVPB Last administered on 07/09/18at 08:40; Admin Dose 100 MLS/HR; Start 07/07/18 at 16:00 Acetaminophen/ Hydrocodone Bitart ([place] (5/325)) 1 tab Q4H PRN PO MODERATE PAIN LEVEL 4-6 Last administered on 07/09/18at 12:54; Admin Dose 1 TAB; Start 07/07/18 at 19:30 ELIJAH MALDONADO Jul 09, 2018 13:58
[2018-07-09 14:22] VITALS: BP 126/85; PULSE 84; RESP 18
[2018-07-09 20:37] VITALS: BP 134/102; PULSE 78; RESP 18
[2018-07-09] MEDS: ZOLPIDEM 5 MG TAB PO PRN (23:16)
[2018-07-10] MEDS: HYDROCODONE/APAP (5/325) TAB PO PRN ×6 (01:58→23:25)
[2018-07-10 02:15] VITALS: BP 135/94; PULSE 87; RESP 18
[2018-07-10] MEDS: D5W-0.45 NACL + KCL 20 MEQ 1,000 ML IV SCH ×3 (05:00→21:00)
[2018-07-10 07:36] VITALS: BP 127/96; PULSE 78; RESP 20
--- NOTE | 2018-07-10 07:40 | PN ---
DATE: 07/07/2018 Postop day #1 status post bilateral needle loc. partial mastectomy with axillary dissection for cancer (bilateral cancer) and also excision of a large skin mass from the anterior chest wall on midline. SUBJECTIVE: States that she is weak and has some dizziness. It has not been out of bed yet. She uses a walker at home . OBJECTIVE: VITAL SIGNS: Temperature T-max 98.6, heart rate 91, respirations 18, blood pressure 119/82, saturation 100% on nasal cannula. LABS: Hematology: WBC 6500, hemoglobin is 7.2 with hematocrit 22.9, , differential 77.8. On admission hemoglobin is 8.5. The patient is anemic and also hemoglobin has dropped more since operation. Patient has heart rythem regular, lungs clear, abdomen is soft. Dressing around the chest wall is intact. It is not too tight. There are 4 Gareth-Meyers drains coming out of the 2 on each side, they are draining serosanguineous fluid. The amount of drainage from the right side has been 70 mL from at time of operation which was yesterday to today morning 7 o'clock. Her ferritin is high, iron serum is 31 which is low, alkaline phosphatase is 210, also is high. This is a 62-year-old female who was diagnosed with bilateral breast cancer within the past few weeks, so she underwent bilateral operation in the form of bilateral partial mastectomy and axillary dissection yesterday. Also, she has had the lesion, subcutaneous on the skin below the suprasternal notch area midline that has been small for several years, but in the past 6 months has been growing very large, so this lesion also was removed, it looked like infected dermoid cyst. ASSESSMENT AND PLAN: A 62-year-old female who underwent bilateral partial mastectomy for bilateral cancer. The patient's hemoglobin is 7.2 today and elements of macrocytic anemia is in the blood test. The patient has been seen by internal medicine considering the anemia and drop in hemoglobin and weakness and dizziness that the patient feels, we are going to keep the patient at least 1 more night in the hospital and has seen the patient as well. We will see if he has any plan for further evaluation. In regard to anemia and also patient has been feeling weak and has not been able to walk properly since 6 months ago and has been using a walker and of course nobody has figured out why she cannot walk without a walker. In any case, we will see the patient tomorrow and make a decision. Dictated By: TWILA WILKERSON/LISA Conf#: [id number] DID#: [id number] MTDD
[2018-07-10] MEDS: CEFAZOLIN 1 GM/50 ML (PMX) 50 ML IVPB SCH ×3 (08:54→19:49)
[2018-07-10] MEDS ORDERED: LORAZEPAM 0.5 MG TAB PO PRN (12:30)
--- NOTE | 2018-07-10 13:38 | PN ---
Date/Time of Note Date/Time of Note DATE: 07/10/18 TIME: 13:34 Assessment/Plan VTE Prophylaxis [place] [facility] [place]: 4 [place]CD applied [place] [facility] [place] Yes Pharmacological prophylaxis: NA/contraindicated Pharm contraindication: surgical contra Lines/Catheters IV Catheter Type (from [facility]): Peripheral IV Urinary Cath still in place: No Assessment/Plan Hospital Course Hemoglobin is 7.0, patient's complaints of generalized weakness and lightheadedness, will transfuse 1 unit of packed red blood cells, obtain PT eval. Assessment/Plan - Bilateral breast cancer, status post bilateral partial mastectomies. Continue IV fluids and antibiotic. - Chest wall mass, status post resection. - Macrocytic anemia. - Anemia of acute blood loss in addition to patient being anemic prior to admission, we will transfuse 1 unit of packed red blood cells continue to monitor hemoglobin and hematocrit. Dr. Smith is asked to see patient in gastroenterology consultation. Further recommendations based on clinical course. Plan of care discussed with Dr. Goodwin. Result Diagram: 07/09/1860007/09/18 06 Exam/Review of Systems Exam Vitals Vital Signs Date Temp Pulse Resp B/P (MAP) Pulse Ox O2 O2 Flow FiO2 Time Delivery Rate 07/10/18 97.8 78 20 127/96 100 Room Air 07:36 (106) 07/08/18 2.0 08:20 Intake and Output 07/09/18 07/09/18 07/10/18 1515:00 23:00 07:00 IntakeIntake Total 1355 ml 1370 ml 1100 ml OutputOutput Total 535 ml 725 ml 1145 ml BalanceBalance 820 ml 645 ml -45 ml Exam Constitutional: alert, oriented Respiratory: clear to auscultation Cardiovascular: nl pulses Gastrointestinal: soft, non-tender Extremities: normal pulses Neurological: nl mental status Skin: other (Status post bilateral mastectomies) Medications Medication Current Medications Ondansetron HCl (Zofran Inj) 4 mg Q6H PRN IV NAUSEA AND/OR VOMITING; Start 07/06/18 at 15:30 Potassium Chloride/Dextrose/ Sod Cl 1,000 ml @ 125 mls/hr Q8H IV Last administered on 07/10/18at 08:54; Admin Dose 125 MLS/HR; Start 07/06/18 at 15:25 Zolpidem Tartrate (Ambien) 5 mg HS PRN PO INSOMNIA Last administered on 07/09/18at 23:16; Admin Dose 5 MG; Start 07/06/18 at 22:30 Cefazolin Sodium 50 ml @ 100 mls/hr Q8H IVPB Last administered on 07/10/18at 08:54; Admin Dose 100 MLS/HR; Start 07/07/18 at 16:00 Acetaminophen/ Hydrocodone Bitart ([place] (5/325)) 1 tab Q4H PRN PO MODERATE PAIN LEVEL 4-6 Last administered on 07/10/18at 10:02; Admin Dose 1 TAB; Start at 19:30 Lorazepam (Ativan) 0.5 mg Q6H PRN PO ANXIETY; Start 07/10/18 at 12:30 GABRIEL GARCIA Jul 10, 2018 13:38
[2018-07-10 14:34] VITALS: BP 154/82; PULSE 80; RESP 20
--- NOTE | 2018-07-10 18:41 | PN ---
DATE: 07/10/2018 SUBJECTIVE: No new complaint. Is slightly worried about her bowel movement that she has not had a good one in the past few days, but urination is okay. OBJECTIVE: GENERAL: Awake, alert, oriented x3. VITAL SIGNS: Temperature maximum 98.5, heart rate 80, respirations 20, blood pressure 154/82, saturation 95% room air. HEART: Regular. LUNGS: Clear. ABDOMEN: Soft. I and O: Four Gareth-Meyers drains in place. Totally, they have drained 115 mL of serous fluid in the past 24 hours. LABORATORY DATA: There is no lab done today, but yesterday, the hemoglobin was 7, hematocrit 23.6. Chemistry: BUN and creatinine were normal from yesterday. ASSESSMENT AND PLAN: The patient with bilateral breast cancer who underwent bilateral partial mastectomy with axillary dissection and also resection of an infected dermoid cyst from anterosuperior part of the midline chest wall. The patient was found in the hospital to be anemic. The hemoglobin has been low so much that eventually today Medical Service ordered transfusion of 1 unit of packed cells. I asked questions from this patient if she has ever had bleeding per rectum. She said many years ago she had hemorrhoids but not recently, and she does not know why she is anemic. I discussed withElayne, nurse practitioner for Dr. Goodwin's service, and I suggested that it may be better to get a GI colleague to see the patient and evaluate the patient for the cause of anemia. So she is going to talk with Dr. Goodwin, the attending medical service, and make a decision about further working up the patient in regard to cause of anemia. Dictated By: TWILA CHU MD PS/NTS Conf#: [id number] DID#: [id number] CC: CLARENCE KING MD;*EndCC* MTDD
[2018-07-10] MEDS ORDERED: MAGNESIUM HYDROXIDE 30ML CUP PO ONE (19:00)
[2018-07-10 19:30] VITALS: BP 164/116; PULSE 82; RESP 18
[2018-07-10] MEDS: AMLODIPINE 10 MG TAB PO SCH (19:40)
[2018-07-10] MEDS: DOCUSATE SODIUM 100 MG CAP PO SCH (20:41)
[2018-07-10 22:00] VITALS: BP 151/89; PULSE 97; RESP 18
[2018-07-10] MEDS: ZOLPIDEM 5 MG TAB PO PRN (23:25)
[2018-07-11] MEDS: D5W-0.45 NACL + KCL 20 MEQ 1,000 ML IV SCH ×5 (02:24→21:27)
[2018-07-11 02:26] VITALS: BP 127/89; PULSE 85; RESP 18
[2018-07-11] MEDS: HYDROCODONE/APAP (5/325) TAB PO PRN ×5 (04:02→20:20)
[2018-07-11] MEDS: CEFAZOLIN 1 GM/50 ML (PMX) 50 ML IVPB SCH ×3 (04:05→21:27)
[2018-07-11 07:35] VITALS: BP 142/92; PULSE 87; RESP 20
[2018-07-11] MEDS: AMLODIPINE 10 MG TAB PO SCH (08:29)
[2018-07-11 14:15] VITALS: BP 126/86; PULSE 70; RESP 20
--- NOTE | 2018-07-11 15:16 | PN ---
DATE: 07/11/2018 SUBJECTIVE: Postop day #4, status post bilateral partial mastectomy _ and axillary dissection and also wide excision of the infected dermoid cyst of the anterior upper chest wall. Also, patient was found to be anemic. Eventually yesterday she received 1 unit of packed cells and hemoglobin has increased from 7 before transfusion to 10 today after transfusion. OBJECTIVE: GENERAL: Awake, alert, oriented, has been out of bed with physical therapy to help ambulate around. VITAL SIGNS: Temperature maximum 98.3, heart rate 85, respiration 18, blood pressure 127/89, saturation 94% room air. Pathology is not back yet. Internal medicine, Dr. Goodwin' service has requested from Dr. Smith to see the patient in regard to cause of anemia. From surgical point of view and breast point of view, she is stable. Gareth-Meyers 4 of them and they have drained in past 24 hours totally 130 mL serosanguineous and more serous fluid. PLAN: Continue current care. Keep the Gareth-Meyers in place and keep the Isidro bandage wrapped around the chest wall. Awaiting Dr. Smith's impression and assessment and help. Dictated By: TWILA CHU MD PS/NTS Conf#: [id number] DID#: [id number] CC: CLARENCE KING MD;*EndCC* MTDD
--- NOTE | 2018-07-11 18:44 | CONS ---
DATE OF ADMISSION: 07/06/2018 DATE OF CONSULTATION: TYPE OF CONSULTATION: Gastroenterology. REASON FOR CONSULT: Anemia. HISTORY OF PRESENT ILLNESS: The patient is a 62-year-old female who on a routine mammogram found to have bilateral breast cancer. She also had a presternal cystic mass. She underwent surgery with vane ateral mastectomy and the removal of the cyst. GI consult was called in for a significant drop in he matocrit, which the patient required blood transfusion. The patient denies of any abdominal pain. N o nausea, no vomiting, no GI bleeding, no chest pain or shortness of breath. PAST MEDICAL HISTORY: Hypertension. SOCIAL HISTORY: No alcohol. ALLERGIES: NONE. PHYSICAL EXAMINATION: VITALS: Stable. HEENT: Unremarkable. NECK: Supple. No thyromegaly, no lymphadenopathy. CARDIOVASCULAR: No murmur, gallop or click. LUNGS: Clear. ABDOMEN: Benign. EXTREMITIES: No edema. CENTRAL NERVOUS SYSTEMS: Grossly within normal limits. IMPRESSION: 1. Bilateral mastectomy for breast cancer. 2. Chest wall cystic lesion resection. 3. Anemia requiring blood transfusion. 4. Hypertension. 5. Strong family history of colon cancer. Father had a colon cancer. PLAN: At this point is to do the anemia workup which was done. Her B12, folic acid and ferritin are all within normal limits. Stool for occult blood is pending. However, the patient definitely needs colonoscopy given her age and given the strong family history of colon cancer. Dictated By: KENYON HANNA/NTS Conf#: [id number] DID#: [id number] CC: CLARENCE KING MD; RAN GIBBS MD;*EndCC*
[2018-07-11 20:09] VITALS: BP 134/93; PULSE 79; RESP 18
[2018-07-11] MEDS: DOCUSATE SODIUM 100 MG CAP PO SCH (20:19)
--- NOTE | 2018-07-11 21:26 | PN ---
Date/Time of Note Date/Time of Note DATE: 07/11/18 TIME: 21:22 Assessment/Plan VTE Prophylaxis Risk score (from [facility])>0 risk: 6 SCD applied (from [facility]): Yes Pharmacological prophylaxis: NA/contraindicated Pharm contraindication: surgical contra Lines/Catheters IV C[facility]ter Type (from [facility]): Peripheral IV Urinary Cath still in place: No Assessment/Plan Hospital Course Patient status post blood transfusion, undergoing evaluation for anemia. Hyperkalemia, DC IV fluids with KCl, BMP tomorrow. generalized weakness, continue PT. Assessment/Plan - Bilateral breast cancer, status post bilateral partial mastectomies. Continue IV fluids and antibiotic. - Chest wall mass, status post resection. - Macrocytic anemia. - Anemia of acute blood loss in addition to patient being anemic prior to admission, we will transfuse 1 unit of packed red blood cells continue to monitor hemoglobin and hematocrit. Dr. Smith is asked to see patient in [facility] roenterology consultation. Further recommendations based on clinical course. Plan of care discussed with Dr. Goodwin. Result Diagram: 07/11/18 0554 07/11/18 0554 Results 24hrs Laboratory Tests Test 07/11/18 05:54 07/11/18 05:59 White Blood Count 5.0 # Red Blood Count 2.92 L Hemoglobin 10.0 L Hematocrit 31.9 L Mean Corpuscular Volume 109.2 H Mean Corpuscular Hemoglobin 34.2 H Mean Corpuscular Hemoglobin Concent 31.3 L Red Cell Distribution Width 19.8 H Platelet Count 240 Mean Platelet Volume 10.1 Immature Granulocytes % 0.600 H Neutrophils % 62.0 Lymphocytes % 24.6 Monocytes % 10.0 Eosinophils % 2.0 Basophils % 0.8 Nucleated Red Blood Cells % 0.0 Immature Granulocytes # 0.030 Neutrophils # 3.1 Lymphocytes # 1.2 Monocytes # 0.5 Eosinophils # 0.1 Basophils # 0.0 Nucleated Red Blood Cells # 0.0 Sodium Level 139 Potassium Level 5.6 H Chloride Level 112 H Carbon Dioxide Level 23 Anion Gap 4 L Blood Urea Nitrogen 8 Creatinine 0.90 Est Glomerular Filtrat Rate mL/min > 60 Glucose Level 82 Calcium Level 8.7 Lab Scanned Report BLOOD TRANSFUSION Exam/Review of Systems Exam Vitals Vital Signs Date Temp Pulse Resp B/P (MAP) Pulse Ox O2 O2 Flow FiO2 Time Delivery Rate 07/11/18 98.5 79 18 134/93 100 20:09 (107) 07/11/18 Room Air 14:15 07/08/18 2.0 08:20 Intake and Output 07/10/18 07/10/18 07/11/18 1515:00 23:00 07:00 IntakeIntake Total 710 ml 2105 ml 1300 ml OutputOutput Total 615 ml 275 ml 550 ml BalanceBalance 95 ml 1830 ml 750 ml Exam Constitutional: alert, oriented Respiratory: clear to auscultation Cardiovascular: nl pulses Gastrointestinal: soft, non-tender Extremities: normal pulses Neurological: nl mental status Skin: other (Status post bilateral mastectomies) Results Results 24hrs Laboratory Tests Test 07/11/18 05:54 07/11/18 05:59 White Blood Count 5.0 # Red Blood Count 2.92 L Hemoglobin 10.0 L Hematocrit 31.9 L Mean Corpuscular Volume 109.2 H Mean Corpuscular Hemoglobin 34.2 H Mean Corpuscular Hemoglobin Concent 31.3 L Red Cell Distribution Width 19.8 H Platelet Count 240 Mean Platelet Volume 10.1 Immature Granulocytes % 0.600 H Neutrophils % 62.0 Lymphocytes % 24.6 Monocytes % 10.0 Eosinophils % 2.0 Basophils % 0.8 Nucleated Red Blood Cells % 0.0 Immature Granulocytes # 0.030 Neutrophils # 3.1 Lymphocytes # 1.2 Monocytes # 0.5 Eosinophils # 0.1 Basophils # 0.0 Nucleated Red Blood Cells # 0.0 Sodium Level 139 Potassium Level 5.6 H Chloride Level 112 H Carbon Dioxide Level 23 Anion Gap 4 L Blood Urea Nitrogen 8 Creatinine 0.90 Est Glomerular Filtrat Rate mL/min > 60 Glucose Level 82 Calcium Level 8.7 Lab Scanned Report BLOOD TRANSFUSION Medications Medication Current Medications Ondansetron HCl (Zofran Inj) 4 mg Q6H PRN IV NAUSEA AND/OR VOMITING; Start 07/06/18 at 15:30 Potassium Chloride/Dextrose/ Sod Cl 1,000 ml @ 125 mls/hr Q8H IV Last administered on 07/11/18at 12:35; Admin Dose 125 MLS/HR; Start 07/06/18 at 15:25 Zolpidem Tartrate (Ambien) 5 mg HS PRN PO INSOMNIA Last administered on 07/10/18at 23:25; Admin Dose 5 MG; Start 07/06/18 at 22:30 Acetaminophen/ Hydrocodone Bitart ([place] (5/325)) 1 tab Q4H PRN PO MODERATE PAIN LEVEL 4-6 Last administered on 07/11/18 20:20; Admin Dose 1 TAB; Start 07/07/18 at 19:30 Lorazepam (Ativan) 0.5 mg Q6H PRN PO ANXIETY Last administered on 07/10/18 15:21; Admin Dose 0.5 MG; Start 07/10/18 at 12:30 Docusate Sodium (Colace) 100 mg HS PO Last administered on 07/11/18 20:19; Admin Dose 100 MG; Start 07/10/18 at 21:00 Amlodipine Besylate (Norvasc) 10 mg DAILY PO Last administered on 07/11/18 08:29; Admin Dose 10 MG; Start 07/10/18 at 19:30 Cefazolin Sodium 50 ml @ 100 mls/hr Q8 IVPB Last administered on 07/11/18 14:06; Admin Dose 100 MLS/HR; Start 07/11/18 at 05:00 GABRIEL GARCIA Jul 11, 2018 21:26
[2018-07-11] MEDS: ZOLPIDEM 5 MG TAB PO PRN (21:27)
[2018-07-12] MEDS: HYDROCODONE/APAP (5/325) TAB PO PRN ×5 (02:08→20:37)
[2018-07-12 02:15] VITALS: BP 146/99; PULSE 87; RESP 18
[2018-07-12] MEDS: CEFAZOLIN 1 GM/50 ML (PMX) 50 ML IVPB SCH ×3 (06:27→21:47)
[2018-07-12 07:35] VITALS: BP 125/88; PULSE 78; RESP 18
[2018-07-12] MEDS: AMLODIPINE 10 MG TAB PO SCH (09:26)
--- NOTE | 2018-07-12 12:59 | PN ---
Date/Time of Note Date/Time of Note DATE: 07/12/18 TIME: 12:58 Assessment/Plan VTE Prophylaxis Risk score (from Ns)>0 risk: 5 SCD applied (from Nsg): Yes Lines/Catheters IV [facility] (from [facility] Saline Lock Urinary Cath still in place: No Assessment/Plan Assessment/Plan - Bilateral breast cancer, status post bilateral partial mastectomies. Continue IV fluids and antibiotic. - Chest wall mass, status post resection. - Macrocytic anemia. - Anemia of acute blood loss in addition to patient being anemic prior to admission, we will transfuse 1 unit of packed red blood cells continue to monitor hemoglobin and hematocrit. Dr. Smith is asked to see patient in gastroenterology consultation. Further recommendations based on clinical course. Plan of care discussed with Dr. Goodwin. Result Diagram: 07/12/18 0512 07/12/18 0512 Results 24hrs Laboratory Tests Test 07/12/18 05:12 White Blood Count 4.0 L Red Blood Count 2.67 L Hemoglobin 9.2 L Hematocrit 29.6 L Mean Corpuscular Volume 110.9 H Mean Corpuscular Hemoglobin 34.5 H Mean Corpuscular Hemoglobin Concent 31.1 L Red Cell Distribution Width 18.6 H Platelet Count 210 Mean Platelet Volume 10.1 Immature Granulocytes % 0.500 H Neutrophils % 55.4 Lymphocytes % 29.5 Monocytes % 11.5 H Eosinophils % 2.3 Basophils % 0.8 Nucleated Red Blood Cells % 0.0 Immature Granulocytes # 0.020 Neutrophils # 2.2 Lymphocytes # 1.2 Monocytes # 0.5 Eosinophils # 0.1 Basophils # 0.0 Nucleated Red Blood Cells # 0.0 Absolute Reticulocyte Count 0.140 H Percent Reticulocyte Count 5.3 H Sodium Level 137 Potassium Level 5.9 H Chloride Level 113 H Carbon Dioxide Level 24 Anion Gap 0 L Blood Urea Nitrogen 8 Creatinine 0.89 Est Glomerular Filtrat Rate mL/min > 60 Glucose Level 74 Calcium Level 8.6 Exam/Review of Systems Exam Vitals Vital Signs Date Temp Pulse Resp B/P (MAP) Pulse Ox O2 O2 Flow FiO2 Time Delivery Rate 07/12/18 97.9 78 18 125/88 93 Room Air 07:35 (100) 07/08/18 2.0 08:20 Intake and Output 07/11/18 07/11/18 07/12/18 1515:00 23:00 07:00 IntakeIntake Total 1470 ml 1410 ml 218 ml OutputOutput Total 500 ml 335 ml 270 ml BalanceBalance 970 ml 1075 ml -52 ml Constitutional: alert, oriented, well developed Psych: nl mood/affect Eyes: EOMI, nl lids, nl sclera Neck: non-tender Respiratory: diminished breath sounds Cardiovascular: nl pulses Gastrointestinal: soft, non-tender Musculoskeletal: nl extremities to inspection Extremities: normal pulses Neurological: nl speech, other Skin: other ( status post bilateral partial mastectomies.- STEFANI INTACT) Lymph: nontender Results Results 24hrs Laboratory Tests Test 07/12/18 05:12 White Blood Count 4.0 L Red Blood Count 2.67 L Hemoglobin 9.2 L Hematocrit 29.6 L Mean Corpuscular Volume 110.9 H Mean Corpuscular Hemoglobin 34.5 H Mean Corpuscular Hemoglobin Concent 31.1 L Red Cell Distribution Width 18.6 H Platelet Count 210 Mean Platelet Volume 10.1 Immature Granulocytes % 0.500 H Neutrophils % 55.4 Lymphocytes % 29.5 Monocytes % 11.5 H Eosinophils % 2.3 Basophils % 0.8 Nucleated Red Blood Cells % 0.0 Immature Granulocytes # 0.020 Neutrophils # 2.2 Lymphocytes # 1.2 Monocytes # 0.5 Eosinophils # 0.1 Basophils # 0.0 Nucleated Red Blood Cells # 0.0 Absolute Reticulocyte Count 0.140 H Percent Reticulocyte Count 5.3 H Sodium Level 137 Potassium Level 5.9 H Chloride Level 113 H Carbon Dioxide Level 24 Anion Gap 0 L Blood Urea Nitrogen 8 Creatinine 0.89 Est Glomerular Filtrat Rate mL/min > 60 Glucose Level 74 Calcium Level 8.6 Medications Medication Current Medications Ondansetron HCl (Zofran Inj) 4 mg Q6H PRN IV NAUSEA AND/OR VOMITING; Start 07/06/18 at 15:30 Zolpidem Tartrate (Ambien) 5 mg HS PRN PO INSOMNIA Last administered on 07/11/18at 21:27; Admin Dose 5 MG; Start 07/06/18 at 22:30 Acetaminophen/ Hydrocodone Bitart ([place] (5/325)) 1 tab Q4H PRN PO MODERATE PAIN LEVEL 4-6 Last administered on 07/12/18at 12:48; Admin Dose 1 TAB; Start 07/07/18 at 19:30 Lorazepam (Ativan) 0.5 mg Q6H PRN PO ANXIETY Last administered on 07/10/18 15:21; Admin Dose 0.5 MG; Start 07/10/18 at 12:30 Docusate Sodium (Colace) 100 mg HS PO Last administered on 07/11/18 20:19; Admin Dose 100 MG; Start 07/10/18 at 21:00 Amlodipine Besylate (Norvasc) 10 mg DAILY PO Last administered on 07/12/18 09:26; Admin Dose 10 MG; Start 07/10/18 at 19:30 Cefazolin Sodium 50 ml @ 100 mls/hr Q8 IVPB Last administered on 07/12/18 06:27; Admin Dose 100 MLS/HR; Start 07/11/18 at 05:00 ELIJAH MALDONADO Jul 12, 2018 12:59
[2018-07-12] MEDS ORDERED: NA POLYST SULFON 15 GM/60 ML BTL PO ONE (13:00)
[2018-07-12] MEDS ORDERED: BISACODYL (EC) 5 MG TAB PO ONE ×2 (14:00→22:00)
[2018-07-12 14:47] VITALS: BP 124/93; PULSE 87; RESP 18
[2018-07-12] MEDS ORDERED: PEG/ELECTROLYTES 4L BTL PO ONE ×2 (15:00→20:00)
--- NOTE | 2018-07-12 16:19 | PN ---
DATE: 07/12/2018 Status post bilateral partial mastectomy with axillary dissection and excision of infected ruptured d ermoid cyst, anterior chest wall. SUBJECTIVE: Feels good. No complaint. Apparently, Dr. Smith, historic preservationist, has seen the pat ient and given the fact that the patient has strong family history of cancer of colon in her father, so he strongly recommended colonoscopy to be done and he is planning to do it tomorrow. OBJECTIVE: GENERAL: Awake, alert, oriented. VITAL SIGNS: Temperature maximum 98.5, heart rate 87, respiration 18, blood pressure 146/99, saturat ion 93% on room air. SKIN: Dressing was removed. Wound was inspected. All the wounds are clean. INPUT AND OUTPUT: There are 4 Gareth-Meyers drains in place that are draining serous and slightly se rosanguineous fluid. The site of the ruptured dermoid cyst removal which is [place] drain under the skin still has some drainage over there. PLAN: 1. Continue IV antibiotic, Ancef considering that the dermoid cyst was infected. 2. Dr. Smith is going to do colonoscopy tomorrow. Further decision will be made after Dr. Smith d id colonoscopy. It is possible that we may be able to discharge the patient by the end of the week, but home health care should make it arranged so that they can do dressing change for the anterior [address] wall wound care. Dictated By: TWILA CHU MD PS/NTS Conf#: [id number] DID#: [id number] CC: RAN GIBBS MD; CLARENCE KING MD;*EndCC*
--- NOTE | 2018-07-12 17:32 | PREAC ---
Date/Time of Note Date/Time of Note DATE: 07/12/18 TIME: 17:31 Anesthesia Eval and Record Evaluation Time Pre-Procedure Interview DATE: 07/12/18 TIME: 17:31 Age 62 Sex female NPO: 8 hrs Preoperative diagnosis Anemia Planned procedure colonoscopy Past Medical History Past Medical History: Includes Cardio: HTN Heme: Anemia Surgery & Anesthesia Issues No known issue Meds Anticoagulation: No Beta Roderick within 24 hr: No Reason Beta Roderick not given: Pt. not on B-Roderick Active Scripts Hydrocodone/Acetaminophen ([place] 5-325 Tablet) 1 Each Tablet, 1 EACH PO Q6, #14 TAB Prov:ELIJAH MALDONADO 07/09/18 Cephalexin* (Keflex*) 500 Mg Capsule, 500 MG PO Q6 for 7 Days, CAP Prov:ELIJAH MALDONADO 07/09/18 Current Medications Ondansetron HCl (Zofran Inj) 4 mg Q6H PRN IV NAUSEA AND/OR VOMITING; Start 07/06/18 at 15:30 Zolpidem Tartrate (Ambien) 5 mg HS PRN PO INSOMNIA Last administered on 07/11/18at 21:27; Admin Dose 5 MG; Start 07/06/18 at 22:30 Acetaminophen/ Hydrocodone Bitart ([place] (5/325)) 1 tab Q4H PRN PO MODERATE PAIN LEVEL 4-6 Last administered on 07/12/18at 16:23; Admin Dose 1 TAB; Start 07/07/18 at 19:30 Lorazepam (Ativan) 0.5 mg Q6H PRN PO ANXIETY Last administered on 07/10/18at 15:21; Admin Dose 0.5 MG; Start 07/10/18 at 12:30 Docusate Sodium (Colace) 100 mg HS PO Last administered on 07/11/18 20:19; Admin Dose 100 MG; Start 07/10/18 at 21:00 Amlodipine Besylate (Norvasc) 10 mg DAILY PO Last administered on 07/12/18at 09:26; Admin Dose 10 MG; Start 07/10/18 at 19:30 Cefazolin Sodium 50 ml @ 100 mls/hr Q8 IVPB Last administered on 07/12/18at 14 :37; Admin Dose 100 MLS/HR; Start 07/11/18 at 05:00 Polyethylene Glycol/ Electrolytes (Golytely) 2,000 ml 2nd Dose (GI Prep) ONCE PO ; Start 07/12/18 at 20:00; Stop 07/12/18 at 20:01 Bisacodyl (Dulcolax) 10 mg 2nd Dose (GI Prep) ONCE PO ; Start 07/12/18 at 22:00; Stop 07/12/18 at 22:01 Meds reviewed: Yes Allergies Coded Allergies: No Known Drug Allergy (Verified Allergy, Unknown, 07/06/18) Allergies Reviewed: Yes Labs/Studies Labs Reviewed: Reviewed by anesthesiologist Result Diagram: 07/12/1851107/12/1812 Laboratory Tests 07/12/18 05:12 test: N/A Studies: ECG (SR), CXR (No acute cardiopulmonary disease. ) Pre-procedure Exam Last vitals Vital Signs Date Temp Pulse Resp B/P (MAP) Pulse Ox O2 O2 Flow FiO2 Time Delivery Rate 07/12/18 98.3 87 18 124/93 97 Room Air 14:47 (103) 07/08/18 2.0 08:20 Airway: Adequate mouth opening Mallampati: Mallampati II Teeth: Normal Lung: Normal Heart: Normal ASA Physical Status ASA physical status: 2 Emergency: None Planned Anesthetic General/MAC: MAC Pre-operative Attestations Prior to commencing anesthesia and surgery, the patient was re-evaluated, there was verification of: *The patient's identity *The results of appropriate recent lab work and preoperative vital signs *The above evaluation not changing prior to induction *Anesthetic plan, risk benefits, alternative and complications discussed with patient/family; questions answered; patient/family understands, accepts and wishes to proceed. ALINE SHABAZZ Jul 12, 2018 17:32
[2018-07-12 19:21] VITALS: BP 143/95; PULSE 97; RESP 18
[2018-07-12] MEDS: DOCUSATE SODIUM 100 MG CAP PO SCH (20:36)
[2018-07-12] MEDS: ZOLPIDEM 5 MG TAB PO PRN (23:24)
[2018-07-13] VITALS (8 sets, daily range): BP systolic 111–147; BP diastolic 77–104; PULSE 74–86; RESP 16–18
[2018-07-13] MEDS: CEFAZOLIN 1 GM/50 ML (PMX) 50 ML IVPB SCH ×3 (05:30→21:41)
[2018-07-13] MEDS: HYDROCODONE/APAP (5/325) TAB PO PRN ×3 (05:30→19:26)
[2018-07-13] MEDS: AMLODIPINE 10 MG TAB PO SCH (09:00)
[2018-07-13] MEDS ORDERED: MIDAZOLAM 1 MG/ML 2 ML INJ ONE (12:34)
[2018-07-13] MEDS ORDERED: LIDOCAINE 2% (SDV) 5 ML INJ ONE (12:34)
[2018-07-13] MEDS ORDERED: PROPOFOL 20 ML ONE ×3 (12:34→12:58)
--- NOTE | 2018-07-13 13:07 | PAC ---
Date/Time of Note Date/Time of Note DATE: 07/13/18 TIME: 13:06 Post-Anesthesia Notes Post-Anesthesia Note Last documented vital signs Vital Signs Date Temp Pulse Resp B/P (MAP) Pulse Ox O2 O2 Flow FiO2 Time Delivery Rate 07/13/18 Simple 12 12:30 Mask 07/13/18 97.8 86 16 147/100 98 12:22 (116) Activity: WNL Respiratory function: WNL Cardiovascular function: WNL Mental status: Baseline Pain reasonably controlled: Yes Hydration appropriate: Yes Nausea/Vomiting absent: Yes Comments BP: 118/80 HR: 78 RR:15 T: 98 SaO2: 99% ALAN VALDES MD Jul 13, 2018 13:07
--- NOTE | 2018-07-13 17:40 | PN ---
DATE: 07/13/2018 The patient was seen several hours earlier in the morning, but now I am done dictating the findings a t that time and plan. SUBJECTIVE: No specific complaint. The patient is ready to go for the colonoscopy for evaluation of cause of anemia because the patient on admission, hemoglobin was 8.5 which were later on dropped to 7 days. OBJECTIVE: GENERAL: Alert, awake, oriented before going for colonoscopy. VITAL SIGNS: Temperature 97.8, heart rate 86, respirations 16, blood pressure 147/100, saturation 98 % on room air. LABORATORY DATA: Today, WBC is 3800 with 52% segmented neutrophils, which is normal differential. H emoglobin 9.1, hematocrit is 9.1, platelets 186. Chemistry at 5:00 in the morning: Sodium, potassiu m are normal, BUN and creatinine are normal. ASSESSMENT AND PLAN: A 62-year-old female who had bilateral partial mastectomy needle directed for b ilateral cancer, also excision of the infected ruptured dermoid cyst over the anterior part of the ch est midline. The patient had a low hemoglobin and consultation with GI colleague was obtained. Dr. Smith recommended colonoscopy especially with the patient's history of colon cancer in her family. Today, the patient will be taken to the GI lab and colonoscopy will be done. We will wait for the re sult of the finding and make further decision on that basis. The Gareth-Meyers drains are in place a nd they are draining mostly serous fluid and one of them is serosanguineous. The amount of drainage in past 24 hours has been totally 235 mL. Dictated By: TWILA CHU MD PS/NTS Conf#: [id number] DID#: [id number] CC: RAN GIBBS MD; CLARENCE KING MD;*EndCC*
[2018-07-13] MEDS: DOCUSATE SODIUM 100 MG CAP PO SCH (21:07)
--- NOTE | 2018-07-13 23:13 | PN ---
Date/Time of Note Date/Time of Note DATE: 07/13/18 TIME: 23:13 Assessment/Plan VTE Prophylaxis Risk score (from Ns)>0 risk: 5 SCD applied (from Nsg): Yes Lines/Catheters IV Catheter Type (from Nrs): Saline Lock Urinary Cath still in place: No Assessment/Plan Assessment/Plan - Bilateral breast cancer, status post bilateral partial mastectomies. Continue IV fluids and antibiotic. - Chest wall mass, status post resection. - Macrocytic anemia. - Anemia of acute blood loss in addition to patient being anemic prior to admission, we will transfuse 1 unit of packed red blood cells continue to monitor hemoglobin and hematocrit. Dr. Smith is asked to see patient in gastroenterology consultation. Further recommendations based on clinical course. Plan of care discussed with Dr. Goodwin. Result Diagram: 07/13/18 0502 07/13/18 0502 Results 24hrs Laboratory Tests Test 07/13/18 05:02 White Blood Count 3.8 L Red Blood Count 2.66 L Hemoglobin 9.1 L Hematocrit 29.1 L Mean Corpuscular Volume 109.4 H Mean Corpuscular Hemoglobin 34.2 H Mean Corpuscular Hemoglobin Concent 31.3 L Red Cell Distribution Width 17.7 H Platelet Count 186 Mean Platelet Volume 10.0 Immature Granulocytes % 0.500 H Neutrophils % 52.1 Lymphocytes % 33.4 Monocytes % 11.6 H Eosinophils % 1.6 Basophils % 0.8 Nucleated Red Blood Cells % 0.0 Immature Granulocytes # 0.020 Neutrophils # 2.0 Lymphocytes # 1.3 Monocytes # 0.4 Eosinophils # 0.1 Basophils # 0.0 Nucleated Red Blood Cells # 0.0 Sodium Level 141 Potassium Level 4.2 Chloride Level 114 H Carbon Dioxide Level 23 Anion Gap 4 L Blood Urea Nitrogen 8 Creatinine 0.90 Est Glomerular Filtrat Rate mL/min > 60 Glucose Level 76 Calcium Level 8.7 Exam/Review of Systems Exam Vitals Vital Signs Date Temp Pulse Resp B/P (MAP) Pulse Ox O2 O2 Flow FiO2 Time Delivery Rate 07/13/18 98.6 78 18 124/86 98 20:18 (99) 07/13/18 Room Air 15:07 07/13/18 12.0 12:57 Intake and Output 07/12/18 07/12/18 07/13/18 1515:00 23:00 07:00 IntakeIntake Total 840 ml 340 ml 50 ml OutputOutput Total 205 ml BalanceBalance 840 ml 135 ml 50 ml Constitutional: alert, oriented Psych: nl mood/affect Head: normocephalic Eyes: EOMI, nl sclera ENMT: nl external ears & nose Respiratory: clear to auscultation Musculoskeletal: nl extremities to inspection Extremities: normal pulses Neurological: nl mental status, nl speech Lymph: nontender Results Results 24hrs Laboratory Tests Test 07/13/18 05:02 White Blood Count 3.8 L Red Blood Count 2.66 L Hemoglobin 9.1 L Hematocrit 29.1 L Mean Corpuscular Volume 109.4 H Mean Corpuscular Hemoglobin 34.2 H Mean Corpuscular Hemoglobin Concent 31.3 L Red Cell Distribution Width 17.7 H Platelet Count 186 Mean Platelet Volume 10.0 Immature Granulocytes % 0.500 H Neutrophils % 52.1 Lymphocytes % 33.4 Monocytes % 11.6 H Eosinophils % 1.6 Basophils % 0.8 Nucleated Red Blood Cells % 0.0 Immature Granulocytes # 0.020 Neutrophils # 2.0 Lymphocytes # 1.3 Monocytes # 0.4 Eosinophils # 0.1 Basophils # 0.0 Nucleated Red Blood Cells # 0.0 Sodium Level 141 Potassium Level 4.2 Chloride Level 114 H Carbon Dioxide Level 23 Anion Gap 4 L Blood Urea Nitrogen 8 Creatinine 0.90 Est Glomerular Filtrat Rate mL/min > 60 Glucose Level 76 Calcium Level 8.7 Medications Medication Current Medications Ondansetron HCl (Zofran Inj) 4 mg Q6H PRN IV NAUSEA AND/OR VOMITING; Start 07/06/18 at 15:30 Zolpidem Tartrate (Ambien) 5 mg HS PRN PO INSOMNIA Last administered on 07/12/18at 23:24; Admin Dose 5 MG; Start 07/06/18 at 22:30 Acetaminophen/ Hydrocodone Bitart ([place] (5/325)) 1 tab Q4H PRN PO MODERATE PAIN LEVEL 4-6 Last administered on 07/13/18at 19:26; Admin Dose 1 TAB; Start 07/07/18 at 19:30 Lorazepam (Ativan) 0.5 mg Q6H PRN PO ANXIETY Last administered on 07/10/18at 15:21; Admin Dose 0.5 MG; Start 07/10/18 at 12:30 Docusate Sodium (Colace) 100 mg HS PO Last administered on 07/13/18at 21:07; Admin Dose 100 MG; Start 07/10/18 at 21:00 Amlodipine Besylate (Norvasc) 10 mg DAILY PO Last administered on 07/12/18at 09:26; Admin Dose 10 MG; Start 07/10/18 at 19:30 Cefazolin Sodium 50 ml @ 100 mls/hr Q8 IVPB Last administered on 07/13/18at 21:41; Admin Dose 100 MLS/HR; Start 07/11/18 at 05:00 ELIJAH MALDONADO Jul 13, 2018 23:13
[2018-07-14] MEDS: ZOLPIDEM 5 MG TAB PO PRN ×2 (00:59→20:56)
[2018-07-14 02:00] VITALS: BP 129/86; PULSE 76; RESP 18
[2018-07-14] MEDS: HYDROCODONE/APAP (5/325) TAB PO PRN ×4 (02:52→16:42)
[2018-07-14] MEDS: CEFAZOLIN 1 GM/50 ML (PMX) 50 ML IVPB SCH ×3 (05:47→20:56)
[2018-07-14 07:29] VITALS: BP 129/88; PULSE 78; RESP 16
[2018-07-14] MEDS: AMLODIPINE 10 MG TAB PO SCH (08:39)
--- NOTE | 2018-07-14 10:30 | PN ---
Date/Time of Note Date/Time of Note DATE: 07/14/18 TIME: 10:29 Assessment/Plan VTE Prophylaxis Risk score (from Nsg)>0 risk: 5 SCD applied (from Nsg): Yes Lines/Catheters IV Catheter Type (from Nrsg): Saline Lock Urinary Cath still in place: No Assessment/Plan Assessment/Plan - Bilateral breast cancer, status post bilateral partial mastectomies. Continue IV fluids and antibiotic. - Chest wall mass, status post resection. - Macrocytic anemia. - Anemia of acute blood loss in addition to patient being anemic prior to admission, we will transfuse 1 unit of packed red blood cells continue to monitor hemoglobin and hematocrit. Dr. Smith is asked to see patient in gastroenterology consultation. Further recommendations based on clinical course. Plan of care discussed with Dr. Goodwin. Result Diagram: 07/13/18 0502 07/13/18 0502 Results 24hrs Laboratory Tests Test 07/14/18 07:20 Lab Scanned Report REFERENCE LAB Subjective 24 Hr Interval Summary Free Text/Dictation colonoscopy Exam/Review of Systems Exam Vitals Vital Signs Date Temp Pulse Resp B/P (MAP) Pulse Ox O2 O2 Flow FiO2 Time Delivery Rate 07/14/18 98.5 78 16 129/88 99 Room Air 07:29 (102) 07/13/18 12.0 12:57 Intake and Output 07/13/18 07/13/18 07/14/18 1515:00 23:00 07:00 IntakeIntake Total 360 ml 340 ml 690 ml OutputOutput Total 235 ml 135 ml 75 ml BalanceBalance 125 ml 205 ml 615 ml Constitutional: alert, well developed Psych: nl mood/affect Eyes: EOMI, nl lids, nl sclera ENMT: nl external ears & nose Respiratory: diminished breath sounds Cardiovascular: nl pulses, other (s1s2) Gastrointestinal: soft, non-tender Musculoskeletal: nl extremities to inspection Extremities: normal pulses Neurological: nl mental status, nl speech Lymph: nontender Results Results 24hrs Laboratory Tests Test 07/14/18 07:20 Lab Scanned Report REFERENCE LAB Medications Medication Current Medications Ondansetron HCl (Zofran Inj) 4 mg Q6H PRN IV NAUSEA AND/OR VOMITING; Start 07/06/18 at 15:30 Zolpidem Tartrate (Ambien) 5 mg HS PRN PO INSOMNIA Last administered on 3/22/19at 00:59; Admin Dose 5 MG; Start 07/06/18 at 22:30 Acetaminophen/ Hydrocodone Bitart ([place] (5/325)) 1 tab Q4H PRN PO MODERATE PAIN LEVEL 4-6 Last administered on 07/14/18 07:41; Admin Dose 1 TAB; Start 07/07/18 at 19:30 Lorazepam (Ativan) 0.5 mg Q6H PRN PO ANXIETY Last administered on 07/10/18 15: 21; Admin Dose 0.5 MG; Start 07/10/18 at 12:30 Docusate Sodium (Colace) 100 mg HS PO Last administered on 07/13/18 21:07; Admin Dose 100 MG; Start 07/10/18 at 21:00 Amlodipine Besylate (Norvasc) 10 mg DAILY PO Last administered on 07/14/18 08:39; Admin Dose 10 MG; Start 07/10/18 at 19:30 Cefazolin Sodium 50 ml @ 100 mls/hr Q8 IVPB Last administered on 07/14/18 05:47; Admin Dose 100 MLS/HR; Start 07/11/18 at 05:00 ELIJAH MALDONADO Jul 14, 2018 10:30
[2018-07-14 14:06] VITALS: BP 123/79; PULSE 86; RESP 17
--- NOTE | 2018-07-14 15:06 | CONS ---
Assessment/Plan Assessment/Plan Assessment/Plan (Daily) IMPRESSION: 1. Bilateral mastectomy for breast cancer. 2. Chest wall cystic lesion resection. 3. Anemia requiring blood transfusion. 4. Hypertension. 5. Strong family history of colon cancer. Father had a colon cancer. Similar colonoscopy polypectomy done 2 polyps were removed Plan Monitor H&H Awaiting for the final path report Consultation Date/Type/Reason Admit Date/Time Jul 06, 2018 at 06:16 Initial Consult Date Date/Time of Note DATE: 07/14/18 TIME: 15:05 24 HR Interval Summary Constitutional: no complaints, improved Exam/Review of Systems Exam Vitals Vital Signs Date Temp Pulse Resp B/P (MAP) Pulse Ox O2 O2 Flow FiO2 Time Delivery Rate 07/14/18 98.6 86 17 123/79 97 Room Air 14:06 (94) 07/13/18 12.0 12:57 Intake and Output 07/13/18 07/13/18 07/14/18 1515:00 23:00 07:00 IntakeIntake Total 360 ml 340 ml 690 ml OutputOutput Total 235 ml 135 ml 75 ml BalanceBalance 125 ml 205 ml 615 ml Constitutional: alert, oriented, well developed Psych: no complaints, nl mood/affect Head: normocephalic, atraumatic Eyes: nl conjunctiva, EOMI, nl lids, nl sclera, PERRL ENMT: nl external ears & nose, nl lips & teeth, nl nasal mucosa & septum Neck: supple, non-tender Respiratory: clear to auscultation, normal air movement Cardiovascular: regular rate and rhythm, nl pulses Gastrointestinal: soft, nl liver, spleen, non-tender Musculoskeletal: nl extremities to inspection, nl gait and stance Extremities: normal pulses Neurological: PERSONAL SERVICE WORKERS II-XII intact, nl mental status, nl speech, nl strength Skin: nl turgor; No rash or lesions Lymph: nl lymph nodes Results Result Diagram: 07/13/18 0502 07/13/18 0502 Results 24hrs Laboratory Tests Test 07/14/18 07:20 Lab Scanned Report REFERENCE LAB Medications Medication Current Medications Ondansetron HCl (Zofran Inj) 4 mg Q6H PRN IV NAUSEA AND/OR VOMITING; Start 07/06/18 at 15:30 Zolpidem Tartrate (Ambien) 5 mg HS PRN PO INSOMNIA Last administered on 07/14/18 00:59; Admin Dose 5 MG; Start 07/06/18 at 22:30 Acetaminophen/ Hydrocodone Bitart ([place] (5/325)) 1 tab Q4H PRN PO MODERATE PAIN LEVEL 4-6 Last administered on 07/14/18 12:18; Admin Dose 1 TAB; Start 07/07/18 at 19:30 Lorazepam (Ativan) 0.5 mg Q6H PRN PO ANXIETY Last administered on 07/10/18 15:21; Admin Dose 0.5 MG; Start 07/10/18 at 12:30 Docusate Sodium (Colace) 100 mg HS PO Last administered on 07/13/18 21:07; Admin Dose 100 MG; Start 07/10/18 at 21:00 Amlodipine Besylate (Norvasc) 10 mg DAILY PO Last administered on 07/14/18 08:39; Admin Dose 10 MG; Start 07/10/18 at 19:30 Cefazolin Sodium 50 ml @ 100 mls/hr Q8 IVPB Last administered on 07/14/18 05:47; Admin Dose 100 MLS/HR; Start 07/11/18 at 05:00 KENYON BERG MD Jul 14, 2018 15:06
--- NOTE | 2018-07-14 16:09 | PN ---
DATE: 07/14/2018 Postop day #8. SUBJECTIVE: No complaint. OBJECTIVE: GENERAL: Awake, alert, oriented. VITAL SIGNS: Temperature 38.6, heart rate 78, respirations 16, blood pressure 129/88, saturation 99% on room air. HEART: Regular. LUNGS: Clear. ABDOMEN: Soft. Dressings are intact in wound. INPUT AND OUTPUT: Gareth-Meyers, 4 of them are clean. There is totally 450 mL drainage in past 24 h ours, which is serous in color. The anterior chest wall midline incision which is the site of remova l of the ruptured dermoid cyst is clean, minimal drainage. Laurel drain is still in place. LABORATORY DATA: No labs for today. It should be mentioned that stool occult has been negative. ASSESSMENT: 1. The patient was anemic and she had colonoscopy done by Dr. Smith and per his report, there was n o gross evidence of cancer. There 2 small polyps, benign looking, 1 in the cecum and 1 in the rectum . He removed both of them and apparently, the specimen has been sent, waiting for pathology report. Post-transfusion, the patient's hemoglobin has increased to 9.1. 2. The pathology of the breast is back. There is cancer in the base of left breast 2.4 cm and right side 1.4 cm. Six axillary lymph nodes on the right side were negative and 4 axillary lymph nodes th e left side were negative. The lesion in the anterior chest wall was reported as ruptured dermoid cy st. The patient has been on antibiotics for the dermoid cyst. PLAN: Considering all the above, the patient from surgical point of view can be discharged as soon a s they can make arrangements for the home health to visit the patient at home and take care of the an terior chest wall wound which is the site of removal of dermoid cyst. The patient's brother called o n the phone and he had many questions. I completely answered all his questions to his satisfaction. Then, the patient was advised to call Dr. Webber' office and make an appointment for next Tuesday. T abbey is Tuesday, then next week Tuesday to go and see Dr. Webber and any other questions that they have can ask Dr. Webber to answer the questions about the future of the cancer management for this patient . In regard to the anemia, the patient can call Dr. Smith's office and make an appointment for hussain gauthier or she can talk to her primary care so the primary care can continue followup and investigate th e possibility of causing anemia in this patient. As soon as the adult protective caseworker can make arrangement fo r the home health care, the patient can be discharged either tomorrow or any other day. Dictated By: TWILA CHU MD PS/NTS Conf#: [id number] DID#: [id number] CC: RAN GIBBS MD; CLARENCE WEBBER MD;*EndCC*
[2018-07-14 19:48] VITALS: BP 118/89; PULSE 80; RESP 16
[2018-07-14] MEDS: DOCUSATE SODIUM 100 MG CAP PO SCH (20:56)
[2018-07-15 02:09] VITALS: BP 119/96; PULSE 78; RESP 20
[2018-07-15] MEDS: HYDROCODONE/APAP (5/325) TAB PO PRN ×4 (02:24→19:28)
[2018-07-15] MEDS: CEFAZOLIN 1 GM/50 ML (PMX) 50 ML IVPB SCH ×3 (06:23→21:58)
[2018-07-15 07:38] VITALS: BP 131/84; PULSE 75; RESP 16
[2018-07-15] MEDS: NICOTINE (14 MG/24 HR) PATCH TRANSDERM SCH (09:38)
[2018-07-15] MEDS: AMLODIPINE 10 MG TAB PO SCH (09:38)
--- NOTE | 2018-07-15 13:07 | CONS ---
Assessment/Plan Assessment/Plan Assessment/Plan (Daily) Assessment/Plan (Daily) IMPRESSION: 1. Bilateral mastectomy for breast cancer. 2. Chest wall cystic lesion resection. 3. Anemia requiring blood transfusion. 4. Hypertension. 5. Strong family history of colon cancer. Father had a colon cancer. Similar colonoscopy polypectomy done 2 polyps were removed Plan Monitor H&H Awaiting for the final path report Polyp was tubular adenoma and leiomyoma. Patient needs repeat colonoscopy in 2 years Consultation Date/Type/Reason Admit Date/Time Jul 06, 2018 at 06:16 Initial Consult Date Date/Time of Note DATE: 07/15/18 TIME: 13:06 24 HR Interval Summary Constitutional: no complaints, improved Exam/Review of Systems Exam Vitals Vital Signs Date Temp Pulse Resp B/P (MAP) Pulse Ox O2 O2 Flow FiO2 Time Delivery Rate 07/15/18 97.7 75 16 131/84 100 07:38 (100) 07/14/18 Room Air 14:06 07/13/18 12.0 12:57 Intake and Output 07/14/18 07/14/18 07/15/18 1414:59 22:59 06:59 IntakeIntake Total 480 ml 680 ml OutputOutput Total 100 ml 170 ml BalanceBalance 480 ml 580 ml -170 ml Constitutional: alert, oriented, well developed Psych: no complaints, nl mood/affect Head: normocephalic, atraumatic Eyes: nl conjunctiva, EOMI, nl lids, nl sclera, PERRL ENMT: nl external ears & nose, nl lips & teeth, nl nasal mucosa & septum Neck: supple, non-tender Respiratory: clear to auscultation, normal air movement Cardiovascular: regular rate and rhythm, nl pulses Gastrointestinal: soft, nl liver, spleen, non-tender Musculoskeletal: nl extremities to inspection, nl gait and stance Extremities: normal pulses Neurological: 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 II-XII intact, nl mental status, nl speech, nl strength Skin: nl turgor; No rash or lesions Lymph: nl lymph nodes Results Result Diagram: 07/15/1860507/15/18605 Results 24hrs Laboratory Tests Test 07/15/18 06:06 White Blood Count 3.4 L Red Blood Count 2.49 L Hemoglobin 8.6 L Hematocrit 26.8 L Mean Corpuscular Volume 107.6 H Mean Corpuscular Hemoglobin 34.5 H Mean Corpuscular Hemoglobin Concent 32.1 Red Cell Distribution Width 16.7 H Platelet Count 168 Mean Platelet Volume 9.9 Immature Granulocytes % 0.600 H Neutrophils % 50.5 Lymphocytes % 36.4 Monocytes % 10.2 Eosinophils % 1.7 Basophils % 0.6 Nucleated Red Blood Cells % 0.0 Immature Granulocytes # 0.020 Neutrophils # 1.7 Lymphocytes # 1.3 Monocytes # 0.4 Eosinophils # 0.1 Basophils # 0.0 Nucleated Red Blood Cells # 0.0 Sodium Level 140 Potassium Level 3.7 Chloride Level 113 H Carbon Dioxide Level 22 Anion Gap 5 Blood Urea Nitrogen 9 Creatinine 0.94 Est Glomerular Filtrat Rate mL/min > 60 Glucose Level 72 Calcium Level 8.4 Medications Medication Current Medications Ondansetron HCl (Zofran Inj) 4 mg Q6H PRN IV NAUSEA AND/OR VOMITING; Start 07/06/18 at 15:30 Zolpidem Tartrate (Ambien) 5 mg HS PRN PO INSOMNIA Last administered on 07/14/18 20:56; Admin Dose 5 MG; Start 07/06/18 at 22:30 Acetaminophen/ Hydrocodone Bitart ([place] (5/325)) 1 tab Q4H PRN PO MODERATE PAIN LEVEL 4-6 Last administered on 07/15/18 07:30; Admin Dose 1 TAB; Start 07/07/18 at 19:30 Lorazepam (Ativan) 0.5 mg Q6H PRN PO ANXIETY Last administered on 07/10/18 15:21; Admin Dose 0.5 MG; Start 07/10/18 at 12:30 Docusate Sodium (Colace) 100 mg HS PO Last administered on 07/14/18 20:56; Admin Dose 100 MG; Start 07/10/18 at 21:00 Amlodipine Besylate (Norvasc) 10 mg DAILY PO Last administered on 07/15/18 09:38; Admin Dose 10 MG; Start 07/10/18 at 19:30 Cefazolin Sodium 50 ml @ 100 mls/hr Q8 IVPB Last administered on 07/15/18 06:23; Admin Dose 100 MLS/HR; Start 07/11/18 at 05:00 Nicotine (Nicoderm 14 Mg/ 24hr) 1 patch DAILY TRANSDERM Last administered on 07/15/18 09:38; Admin Dose 1 PATCH; Start 07/15/18 at 09:00 KENYON BERG MD Jul 15, 2018 13:07
--- NOTE | 2018-07-15 13:45 | PN ---
Date/Time of Note Date/Time of Note DATE: 07/15/18 TIME: 13:45 Assessment/Plan VTE Prophylaxis [place] [facility] [place] risk: 3 SCD applied (from Ns): Yes Pharmacological prophylaxis: LMWH Lines/Catheters [facility] Saline Lock Urinary Cath still in place: No Assessment/Plan Hospital Course - Bilateral breast cancer, status post bilateral partial mastectomies. Co ntinue IV fluids and antibiotic. - Chest wall mass, status post resection. - Macrocytic anemia. - Anemia of acute blood loss in addition to patient being anemic prior to admission, we will transfuse 1 unit of packed red blood cells continue to monitor hemoglobin and hematocrit. Dr. Smith is asked to see patient in gastroenterology consultation. Result Diagram: 07/15/1860507/15/18 0606 Results 24hrs Laboratory Tests Test 07/15/18 06:06 White Blood Count 3.4 L Red Blood Count 2.49 L Hemoglobin 8.6 L Hematocrit 26.8 L Mean Corpuscular Volume 107.6 H Mean Corpuscular Hemoglobin 34.5 H Mean Corpuscular Hemoglobin Concent 32.1 Red Cell Distribution Width 16.7 H Platelet Count 168 Mean Platelet Volume 9.9 Immature Granulocytes % 0.600 H Neutrophils % 50.5 Lymphocytes % 36.4 Monocytes % 10.2 Eosinophils % 1.7 Basophils % 0.6 Nucleated Red Blood Cells % 0.0 Immature Granulocytes # 0.020 Neutrophils # 1.7 Lymphocytes # 1.3 Monocytes # 0.4 Eosinophils # 0.1 Basophils # 0.0 Nucleated Red Blood Cells # 0.0 Sodium Level 140 Potassium Level 3.7 Chloride Level 113 H Carbon Dioxide Level 22 Anion Gap 5 Blood Urea Nitrogen 9 Creatinine 0.94 Est Glomerular Filtrat Rate mL/min > 60 Glucose Level 72 Calcium Level 8.4 Subjective 24 Hr Interval Summary Free Text/Dictation Patient has no complaints Exam/Review of Systems Exam Vitals Vital Signs Date Temp Pulse Resp B/P (MAP) Pulse Ox O2 O2 Flow FiO2 Time Delivery Rate 07/15/18 97.7 75 16 131/84 100 07:38 (100) 07/14/18 Room Air 14:06 07/13/18 12.0 12:57 Intake and Output 07/14/18 07/14/18 07/15/18 1515:00 23:00 07:00 IntakeIntake Total 480 ml 680 ml OutputOutput Total 100 ml 170 ml BalanceBalance 480 ml 580 ml -170 ml Constitutional: well developed Head: normocephalic, atraumatic Neck: supple Respiratory: diminished breath sounds Cardiovascular: regular rate and rhythm Gastrointestinal: soft, non-tender Extremities: normal pulses Results Results 24hrs Laboratory Tests Test 07/15/18 06:06 White Blood Count 3.4 L Red Blood Count 2.49 L Hemoglobin 8.6 L Hematocrit 26.8 L Mean Corpuscular Volume 107.6 H Mean Corpuscular Hemoglobin 34.5 H Mean Corpuscular Hemoglobin Concent 32.1 Red Cell Distribution Width 16.7 H Platelet Count 168 Mean Platelet Volume 9.9 Immature Granulocytes % 0.600 H Neutrophils % 50.5 Lymphocytes % 36.4 Monocytes % 10.2 Eosinophils % 1.7 Basophils % 0.6 Nucleated Red Blood Cells % 0.0 Immature Granulocytes # 0.020 Neutrophils # 1.7 Lymphocytes # 1.3 Monocytes # 0.4 Eosinophils # 0.1 Basophils # 0.0 Nucleated Red Blood Cells # 0.0 Sodium Level 140 Potassium Level 3.7 Chloride Level 113 H Carbon Dioxide Level 22 Anion Gap 5 Blood Urea Nitrogen 9 Creatinine 0.94 Est Glomerular Filtrat Rate mL/min > 60 Glucose Level 72 Calcium Level 8.4 Medications Medication Current Medications Ondansetron HCl (Zofran Inj) 4 mg Q6H PRN IV NAUSEA AND/OR VOMITING; Start 07/06/18 at 15:30 Zolpidem Tartrate (Ambien) 5 mg HS PRN PO INSOMNIA Last administered on 07/14/18at 20:56; Admin Dose 5 MG; Start 07/06/18 at 22:30 Acetaminophen/ Hydrocodone Bitart ([place] (5/325)) 1 tab Q4H PRN PO MODERATE PAIN LEVEL 4-6 Last administered on 07/15/18 07:30; Admin Dose 1 TAB; Start 07/07/18 at 19:30 Lorazepam (Ativan) 0.5 mg Q6H PRN PO ANXIETY Last administered on 07/10/18at 15:21; Admin Dose 0.5 MG; Start 07/10/18 at 12:30 Docusate Sodium (Colace) 100 mg HS PO Last administered on 07/14/18at 20:56; Admin Dose 100 MG; Start 07/10/18 at 21:00 Amlodipine Besylate (Norvasc) 10 mg DAILY PO Last administered on 07/15/18 09:38; Admin Dose 10 MG; Start 07/10/18 at 19:30 Cefazolin Sodium 50 ml @ 100 mls/hr Q8 IVPB Last administered on 07/15/18 06:23; Admin Dose 100 MLS/HR; Start 07/11/18 at 05:00 Nicotine (Nicoderm 14 Mg/ 24hr) 1 patch DAILY TRANSDERM Last administered on 07/15/18 09:38; Admin Dose 1 PATCH; Start 07/15/18 at 09:00 RIP HARRINGTON 23, 2019 13:45
[2018-07-15 14:50] VITALS: BP 126/90; PULSE 87; RESP 18
[2018-07-15 19:58] VITALS: BP 115/88; PULSE 72; RESP 18
[2018-07-15] MEDS: ZOLPIDEM 5 MG TAB PO PRN (21:58)
[2018-07-15] MEDS: DOCUSATE SODIUM 100 MG CAP PO SCH (21:58)
[2018-07-16 01:45] VITALS: BP 121/91; PULSE 81; RESP 20
[2018-07-16] MEDS: HYDROCODONE/APAP (5/325) TAB PO PRN ×5 (05:21→21:37)
[2018-07-16] MEDS: CEFAZOLIN 1 GM/50 ML (PMX) 50 ML IVPB SCH ×3 (05:21→21:36)
[2018-07-16 08:32] VITALS: BP 125/90; PULSE 89; RESP 18
[2018-07-16] MEDS: NICOTINE (14 MG/24 HR) PATCH TRANSDERM SCH (09:05)
[2018-07-16] MEDS: AMLODIPINE 10 MG TAB PO SCH (09:06)
--- NOTE | 2018-07-16 13:27 | PN ---
Date/Time of Note Date/Time of Note DATE: 07/16/18 TIME: 13:26 Assessment/Plan VTE [place] [facility] [place]: 4 SCD applied (from Ns): Yes Pharmacological prophylaxis: LMWH Lines/Catheters IV [facility] Type (from [facility] Saline Lock Urinary Cath still in place: No Assessment/Plan Hospital Course - Bilateral breast cancer, status post bilateral partial mastectomies. Co ntinue IV fluids and antibiotic. - Chest wall mass, status post resection. - Macrocytic anemia. - Anemia of acute blood loss in addition to patient being anemic prior to admission, we will transfuse 1 unit of packed red blood cells continue to monitor hemoglobin and hematocrit. Dr. Smith is asked to see patient in gastroenterology consultation. Result Diagram: 07/16/18 0517 07/16/18 0517 Results 24hrs Laboratory Tests Test 07/16/18 05:17 White Blood Count 6.1 # Red Blood Count 3.03 #L Hemoglobin 10.4 #L Hematocrit 32.7 #L Mean Corpuscular Volume 107.9 H Mean Corpuscular Hemoglobin 34.3 H Mean Corpuscular Hemoglobin Concent 31.8 L Red Cell Distribution Width 16.3 H Platelet Count 229 # Mean Platelet Volume 10.0 Immature Granulocytes % 0.300 Neutrophils % 58.7 Lymphocytes % 29.4 Monocytes % 8.8 Eosinophils % 1.8 Basophils % 1.0 Nucleated Red Blood Cells % 0.0 Immature Granulocytes # 0.020 Neutrophils # 3.6 Lymphocytes # 1.8 Monocytes # 0.5 Eosinophils # 0.1 Basophils # 0.1 Nucleated Red Blood Cells # 0.0 Sodium Level 139 Potassium Level 3.8 Chloride Level 110 Carbon Dioxide Level 22 Anion Gap 7 Blood Urea Nitrogen 9 Creatinine 0.93 Est Glomerular Filtrat Rate mL/min > 60 Glucose Level 80 Calcium Level 8.8 Subjective 24 Hr Interval Summary Free Text/Dictation Patient has no complaints Exam/Review of Systems Exam Vitals Vital Signs Date Temp Pulse Resp B/P (MAP) Pulse Ox O2 O2 Flow FiO2 Time Delivery Rate 07/16/18 98.6 89 18 125/90 95 Room Air 08:32 (102) 07/13/18 12.0 12:57 Intake and Output 07/15/18 07/15/18 07/16/18 1515:00 23:00 07:00 IntakeIntake Total 730 ml 170 ml 50 ml OutputOutput Total 105 ml 65 ml BalanceBalance 730 ml 65 ml -15 ml Constitutional: well developed Head: normocephalic, atraumatic Neck: supple Respiratory: clear to auscultation Cardiovascular: regular rate and rhythm Gastrointestinal: soft, non-tender Extremities: normal pulses Results Results 24hrs Laboratory Tests Test 07/16/18 05:17 White Blood Count 6.1 # Red Blood Count 3.03 #L Hemoglobin 10.4 #L Hematocrit 32.7 #L Mean Corpuscular Volume 107.9 H Mean Corpuscular Hemoglobin 34.3 H Mean Corpuscular Hemoglobin Concent 31.8 L Red Cell Distribution Width 16.3 H Platelet Count 229 # Mean Platelet Volume 10.0 Immature Granulocytes % 0.300 Neutrophils % 58.7 Lymphocytes % 29.4 Monocytes % 8.8 Eosinophils % 1.8 Basophils % 1.0 Nucleated Red Blood Cells % 0.0 Immature Granulocytes # 0.020 Neutrophils # 3.6 Lymphocytes # 1.8 Monocytes # 0.5 Eosinophils # 0.1 Basophils # 0.1 Nucleated Red Blood Cells # 0.0 Sodium Level 139 Potassium Level 3.8 Chloride Level 110 Carbon Dioxide Level 22 Anion Gap 7 Blood Urea Nitrogen 9 Creatinine 0.93 Est Glomerular Filtrat Rate mL/min > 60 Glucose Level 80 Calcium Level 8.8 Medications Medication Current Medications Ondansetron HCl (Zofran Inj) 4 mg Q6H PRN IV NAUSEA AND/OR VOMITING; Start 07/06/18 at 15:30 Zolpidem Tartrate (Ambien) 5 mg HS PRN PO INSOMNIA Last administered on 07/15/18 21:58; Admin Dose 5 MG; Start 07/06/18 at 22:30 Acetaminophen/ Hydrocodone Bitart ([place] (5/325)) 1 tab Q4H PRN PO MODERATE PAIN LEVEL 4-6 Last administered on 07/16/18 09:34; Admin Dose 1 TAB; Start 07/07/18 at 19:30 Lorazepam (Ativan) 0.5 mg Q6H PRN PO ANXIETY Last administered on 07/10/18 15:21; Admin Dose 0.5 MG; Start 07/10/18 at 12:30 Docusate Sodium (Colace) 100 mg HS PO Last administered on 07/15/18 21:58; A dmin Dose 100 MG; Start 07/10/18 at 21:00 Amlodipine Besylate (Norvasc) 10 mg DAILY PO Last administered on 07/16/18at 09:06; Admin Dose 10 MG; Start 07/10/18 at 19:30 Cefazolin Sodium 50 ml @ 100 mls/hr Q8 IVPB Last administered on 07/16/18 05:21; Admin Dose 100 MLS/HR; Start 07/11/18 at 05:00 Nicotine (Nicoderm 14 Mg/ 24hr) 1 patch DAILY TRANSDERM Last administered on 07/16/18at 09:05; Admin Dose 1 PATCH; Start 07/15/18 at 09:00 RIP HARRINGTON 24, 2019 13:27
[2018-07-16 14:31] VITALS: BP 130/91; PULSE 86; RESP 18
--- NOTE | 2018-07-16 14:50 | CONS ---
Assessment/Plan Assessment/Plan Assessment/Plan (Daily) Assessment/Plan (Daily) IMPRESSION: 1. Bilateral mastectomy for breast cancer. 2. Chest wall cystic lesion resection. 3. Anemia requiring blood transfusion. 4. Hypertension. 5. Strong family history of colon cancer. Father had a colon cancer. Similar colonoscopy polypectomy done 2 polyps were removed Plan Monitor H&H, it is stable now Awaiting for the final path report Polyp was tubular adenoma and leiomyoma. Patient needs repeat colonoscopy in 2 years Consultation Date/Type/Reason Admit Date/Time Jul 06, 2018 at 06:16 Initial Consult Date Date/Time of Note DATE: 07/16/18 TIME: 14:50 24 HR Interval Summary Constitutional: no complaints, improved Exam/Review of Systems Exam Vitals Vital Signs Date Temp Pulse Resp B/P (MAP) Pulse Ox O2 O2 Flow FiO2 Time Delivery Rate 07/16/18 98.5 86 18 130/91 99 14:31 (104) 07/16/18 Room Air 08:32 07/13/18 12.0 12:57 Intake and Output 07/15/18 07/15/18 07/16/18 1515:00 23:00 07:00 IntakeIntake Total 730 ml 170 ml 50 ml OutputOutput Total 105 ml 65 ml BalanceBalance 730 ml 65 ml -15 ml Constitutional: alert, oriented, well developed Psych: no complaints, nl mood/affect Head: normocephalic, atraumatic Eyes: nl conjunctiva, EOMI, nl lids, nl sclera, PERRL ENMT: nl external ears & nose, nl lips & teeth, nl nasal mucosa & septum Neck: supple, non-tender Respiratory: clear to auscultation, normal air movement Cardiovascular: regular rate and rhythm, nl pulses Gastrointestinal: soft, nl liver, spleen, non-tender Musculoskeletal: nl extremities to inspection, nl gait and stance Extremities: normal pulses Neurological: 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 II-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 intact, nl mental status, nl speech, nl strength Skin: nl turgor; No rash or lesions Lymph: nl lymph nodes Results Result Diagram: 07/16/18 0517 07/16/18 0517 Results 24hrs Laboratory Tests Test 07/16/18 05:17 White Blood Count 6.1 # Red Blood Count 3.03 #L Hemoglobin 10.4 #L Hematocrit 32.7 #L Mean Corpuscular Volume 107.9 H Mean Corpuscular Hemoglobin 34.3 H Mean Corpuscular Hemoglobin Concent 31.8 L Red Cell Distribution Width 16.3 H Platelet Count 229 # Mean Platelet Volume 10.0 Immature Granulocytes % 0.300 Neutrophils % 58.7 Lymphocytes % 29.4 Monocytes % 8.8 Eosinophils % 1.8 Basophils % 1.0 Nucleated Red Blood Cells % 0.0 Immature Granulocytes # 0.020 Neutrophils # 3.6 Lymphocytes # 1.8 Monocytes # 0.5 Eosinophils # 0.1 Basophils # 0.1 Nucleated Red Blood Cells # 0.0 Sodium Level 139 Potassium Level 3.8 Chloride Level 110 Carbon Dioxide Level 22 Anion Gap 7 Blood Urea Nitrogen 9 Creatinine 0.93 Est Glomerular Filtrat Rate mL/min > 60 Glucose Level 80 Calcium Level 8.8 Medications Medication Current Medications Ondansetron HCl (Zofran Inj) 4 mg Q6H PRN IV NAUSEA AND/OR VOMITING; Start 07/06/18 at 15:30 Zolpidem Tartrate (Ambien) 5 mg HS PRN PO INSOMNIA Last administered on 07/15/18 21:58; Admin Dose 5 MG; Start 07/06/18 at 22:30 Acetaminophen/ Hydrocodone Bitart ([place] (5/325)) 1 tab Q4H PRN PO MODERATE PAIN LEVEL 4-6 Last administered on 07/16/18 13:30; Admin Dose 1 TAB; Start 07/07/18 at 19:30 Lorazepam (Ativan) 0.5 mg Q6H PRN PO ANXIETY Last administered on 07/10/18 15:21; Admin Dose 0.5 MG; Start 07/10/18 at 12:30 Docusate Sodium (Colace) 100 mg HS PO Last administered on 07/15/18 21:58; Admin Dose 100 MG; Start 07/10/18 at 21:00 Amlodipine Besylate (Norvasc) 10 mg DAILY PO Last administered on 07/16/18 09:06; Admin Dose 10 MG; Start 07/10/18 at 19:30 Cefazolin Sodium 50 ml @ 100 mls/hr Q8 IVPB Last administered on 07/16/18 13:26; Admin Dose 100 MLS/HR; Start 07/11/18 at 05:00 Nicotine (Nicoderm 14 Mg/ 24hr) 1 patch DAILY TRANSDERM Last administered on 07/16/18at 09:05; Admin Dose 1 PATCH; Start 07/15/18 at 09:00 KENYON BERG MD Jul 16, 2018 14:50
[2018-07-16 19:37] VITALS: BP 126/86; PULSE 81; RESP 18
[2018-07-16] MEDS: DOCUSATE SODIUM 100 MG CAP PO SCH (21:37)
[2018-07-16] MEDS: ZOLPIDEM 5 MG TAB PO PRN (22:48)
[2018-07-17 01:32] VITALS: BP 113/89; PULSE 80; RESP 18
[2018-07-17] MEDS: HYDROCODONE/APAP (5/325) TAB PO PRN ×5 (02:36→18:32)
[2018-07-17] MEDS: CEFAZOLIN 1 GM/50 ML (PMX) 50 ML IVPB SCH ×3 (05:41→22:02)
[2018-07-17 07:19] VITALS: BP 121/74; PULSE 84; RESP 16
--- NOTE | 2018-07-17 08:08 | CONS ---
Assessment/Plan Assessment/Plan Hospital Course (Demo Recall) 62 yo female with h/o breast cancer had severe drop in HH requiring blood transfusion Interval hx: Pt denies any hematochezia or melena. No nausea or abdominal pain. Clean and dry dressings on chest. Denies dizziness, fatigue. Denies any problems with her liver. 1. Bilateral mastectomy for breast cancer. 2. Chest wall cystic lesion resection. 3. Anemia requiring blood transfusion. -drop in hgb from 10.4 to 8.8 -Iron and TIBC both low -Retic 5.4 4. Hypertension. 5. S/P colonoscopy- polypectomy of 2 polyps. -Father had colon cancer -Polyp was tubular adenoma and leiomyoma. 6. Abnormal LFTs. AST 74 and Alk phos 210 Pathology from colonoscopy: A-Colon polypectomy: -- Diminutive tubular adenoma. -- Normal mucosa is also present. -- There is no evidence of malignancy. B-Rectal polypectomy: -- Leiomyoma of the muscularis mucosa. -- No adenoma is identified in deep sections through the block. -- There is no evidence of malignancy. Plan Monitor H&H closely Patient needs repeat colonoscopy in 2 years Recommend Iron supplementation Ultrasound of upper abdomen Check LFTs in am, Pt examined and plan of care discussed with Dr. Smith Consultation Date/Type/Reason Admit Date/Time Jul 06, 2018 at 06:16 Initial Consult Date Date/Time of Note DATE: 07/17/18 TIME: 07:52 Exam/Review of Systems Exam Vitals Vital Signs Date Temp Pulse Resp B/P (MAP) Pulse Ox O2 O2 Flow FiO2 Time Delivery Rate 07/17/18 98.6 84 16 121/74 98 07:19 (90) 07/16/18 Room Air 08:32 07/13/18 12.0 12:57 Intake and Output 07/16/18 07/16/18 07/17/18 1515:00 23:00 07:00 IntakeIntake Total 770 ml 240 ml 50 ml OutputOutput Total 180 ml 185 ml 50 ml BalanceBalance 590 ml 55 ml 0 ml Constitutional: alert, oriented, well developed Psych: no complaints Head: normocephalic Eyes: nl sclera, PERRL ENMT: mucosa pink and moist Respiratory: clear to auscultation Cardiovascular: regular rate and rhythm Gastrointestinal: soft, non-tender Extremities: normal pulses Neurological: nl mental status Results Result Diagram: 07/17/1852207/16/18 0517 Results 24hrs Laboratory Tests Test 07/17/18 05:23 White Blood Count 4.3 #L Red Blood Count 2.52 L Hemoglobin 8.8 L Hematocrit 27.4 L Mean Corpuscular Volume 108.7 H Mean Corpuscular Hemoglobin 34.9 H Mean Corpuscular Hemoglobin Concent 32.1 Red Cell Distribution Width 16.2 H Platelet Count 164 # Mean Platelet Volume 10.2 Immature Granulocytes % 0.500 H Neutrophils % 53.8 Lymphocytes % 32.5 Monocytes % 10.4 Eosinophils % 1.9 Basophils % 0.9 Nucleated Red Blood Cells % 0.0 Immature Granulocytes # 0.020 Neutrophils # 2.3 Lymphocytes # 1.4 Monocytes # 0.4 Eosinophils # 0.1 Basophils # 0.0 Nucleated Red Blood Cells # 0.0 Medications Medication Current Medications Ondansetron HCl (Zofran Inj) 4 mg Q6H PRN IV NAUSEA AND/OR VOMITING; Start 07/06/18 at 15:30 Zolpidem Tartrate (Ambien) 5 mg HS PRN PO INSOMNIA Last administered on 07/16/18 22:48; Admin Dose 5 MG; Start 07/06/18 at 22:30 Acetaminophen/ Hydrocodone Bitart ([place] (5/325)) 1 tab Q4H PRN PO MODERATE PAIN LEVEL 4-6 Last administered on 07/17/18 06:34; Admin Dose 1 TAB; Start 07/07/18 at 19:30 Lorazepam (Ativan) 0.5 mg Q6H PRN PO ANXIETY Last administered on 07/10/18 15:21; Admin Dose 0.5 MG; Start 07/10/18 at 12:30 Docusate Sodium (Colace) 100 mg HS PO Last administered on 07/16/18 21:37; Admin Dose 100 MG; Start 07/10/18 at 21:00 Amlodipine Besylate (Norvasc) 10 mg DAILY PO Last administered on 07/16/18 09:06; Admin Dose 10 MG; Start 07/10/18 at 19:30 Cefazolin Sodium 50 ml @ 100 mls/hr Q8 IVPB Last administered on 07/17/18 05:41; Admin Dose 100 MLS/HR; Start 07/11/18 at 05:00 Nicotine (Nicoderm 14 Mg/ 24hr) 1 patch DAILY TRANSDERM Last administered on 07/16/18at 09:05; Admin Dose 1 PATCH; Start 07/15/18 at 09:00 JUDY PATTERSON Jul 17, 2018 08:08
[2018-07-17] MEDS: AMLODIPINE 10 MG TAB PO SCH (08:33)
[2018-07-17] MEDS: NICOTINE (14 MG/24 HR) PATCH TRANSDERM SCH (08:37)
--- NOTE | 2018-07-17 12:26 | PN ---
Date/Time of Note Date/Time of Note DATE: 07/17/18 TIME: 12:19 Assessment/Plan VTE Prophylaxis Risk score (from [facility] [place], [place])>0 risk: 4 SCD applied (from [facility] [place], [place]): Yes SCD contraindicated: patient refusal Pharmacological prophylaxis: NA/contraindicated Pharm contraindication: surgical contra Lines/Catheters IV [facility]ter Type [facility]from [facility] [place] Urinary Cath still in place: No Assessment/Plan Hospital Course Patient is awake alert, pending ultrasound of the abdomen, will start iron supplements, continue PT. patient's condition discussed with patient and patient brother at the bedside, patient's wants to see Dr. Webber while in house. Patient still have some moderate drainage from JPs. Patient's complaints of constipation. Assessment/Plan - Bilateral breast cancer, status post bilateral partial mastectomies. Continue antibiotic. - Chest wall dermoid cyst, status post resection. - Anemia requiring blood transfusion. Dr. Smith is following in gastroenterology consultation. - S/P colonoscopy- with polypectomy of 2 polyps. Polyp was tubular adenoma and leiomyoma. - Hypertension. Continue Norvasc. - Tobacco dependence, continue nicotine patch, patient decided to quit smoking, asking for nicotine patch prescription. Further recommendations based on clinical course. Plan of care discussed with Dr. Goodwin. Result Diagram: 07/17/18 0523 07/16/18 0517 Results 24hrs Laboratory Tests Test 07/17/18 05:23 White Blood Count 4.3 #L Red Blood Count 2.52 L Hemoglobin 8.8 L Hematocrit 27.4 L Mean Corpuscular Volume 108.7 H Mean Corpuscular Hemoglobin 34.9 H Mean Corpuscular Hemoglobin Concent 32.1 Red Cell Distribution Width 16.2 H Platelet Count 164 # Mean Platelet Volume 10.2 Immature Granulocytes % 0.500 H Neutrophils % 53.8 Lymphocytes % 32.5 Monocytes % 10.4 Eosinophils % 1.9 Basophils % 0.9 Nucleated Red Blood Cells % 0.0 Immature Granulocytes # 0.020 Neutrophils # 2.3 Lymphocytes # 1.4 Monocytes # 0.4 Eosinophils # 0.1 Basophils # 0.0 Nucleated Red Blood Cells # 0.0 Exam/Review of Systems Exam Vitals Vital Signs Date Temp Pulse Resp B/P (MAP) Pulse Ox O2 O2 Flow FiO2 Time Delivery Rate 07/17/18 98.6 84 16 121/74 98 07:19 (90) 07/16/18 Room Air 08:32 07/13/18 12.0 12:57 Intake and Output 07/16/18 07/16/18 07/17/18 1515:00 23:00 07:00 IntakeIntake Total 770 ml 240 ml 50 ml OutputOutput Total 180 ml 185 ml 50 ml BalanceBalance 590 ml 55 ml 0 ml Exam Constitutional: alert, oriented Respiratory: clear to auscultation Cardiovascular: nl pulses Gastrointestinal: soft, non-tender Extremities: normal pulses Neurological: nl mental status Skin: other (Status post bilateral mastectomies) Results Results 24hrs Laboratory Tests Test 07/17/18 05:23 White Blood Count 4.3 #L Red Blood Count 2.52 L Hemoglobin 8.8 L Hematocrit 27.4 L Mean Corpuscular Volume 108.7 H Mean Corpuscular Hemoglobin 34.9 H Mean Corpuscular Hemoglobin Concent 32.1 Red Cell Distribution Width 16.2 H Platelet Count 164 # Mean Platelet Volume 10.2 Immature Granulocytes % 0.500 H Neutrophils % 53.8 Lymphocytes % 32.5 Monocytes % 10.4 Eosinophils % 1.9 Basophils % 0.9 Nucleated Red Blood Cells % 0.0 Immature Granulocytes # 0.020 Neutrophils # 2.3 Lymphocytes # 1.4 Monocytes # 0.4 Eosinophils # 0.1 Basophils # 0.0 Nucleated Red Blood Cells # 0.0 Medications Medication Current Medications Ondansetron HCl (Zofran Inj) 4 mg Q6H PRN IV NAUSEA AND/OR VOMITING; Start 07/06/18 at 15:30 Zolpidem Tartrate (Ambien) 5 mg HS PRN PO INSOMNIA Last administered on 07/16/18at 22:48; Admin Dose 5 MG; Start 07/06/18 at 22:30 Acetaminophen/ Hydrocodone Bitart ([place] (5/325)) 1 tab Q4H PRN PO MODERATE PAIN LEVEL 4-6 Last administered on 07/17/18at 10:33; Admin Dose 1 TAB; Start 07/07/18 at 19:30 Lorazepam (Ativan) 0.5 mg Q6H PRN PO ANXIETY Last administered on 07/10/18at 15:21; Admin Dose 0.5 MG; Start 07/10/18 at 12:30 Docusate Sodium (Colace) 100 mg HS PO Last administered on 07/16/18 21:37; Admin Dose 100 MG; Start 07/10/18 at 21:00 Amlodipine Besylate (Norvasc) 10 mg DAILY PO Last administered on 07/17/18at 0 8:33; Admin Dose 10 MG; Start 07/10/18 at 19:30 Cefazolin Sodium 50 ml @ 100 mls/hr Q8 IVPB Last administered on 07/17/18 05:41; Admin Dose 100 MLS/HR; Start 07/11/18 at 05:00 Nicotine (Nicoderm 14 Mg/ 24hr) 1 patch DAILY TRANSDERM Last administered on 07/17/18 08:37; Admin Dose 1 PATCH; Start 07/15/18 at 09:00 GABRIEL GARCIA Jul 17, 2018 12:26
[2018-07-17 13:21] VITALS: BP 120/86; PULSE 86; RESP 17
[2018-07-17] MEDS: SOD FERRIC GLUC COMPLX 125 MG in SOD CHLORIDE 0.9% 100 ML IVPB SCH (15:10)
[2018-07-17 19:56] VITALS: BP 110/76; PULSE 77; RESP 18
[2018-07-17] MEDS: ZOLPIDEM 5 MG TAB PO PRN (22:01)
[2018-07-17] MEDS: DOCUSATE SODIUM 100 MG CAP PO SCH (22:02)
[2018-07-18 01:58] VITALS: BP 129/91; PULSE 76; RESP 18
[2018-07-18] MEDS: HYDROCODONE/APAP (5/325) TAB PO PRN ×4 (02:07→15:18)
[2018-07-18] MEDS: CEFAZOLIN 1 GM/50 ML (PMX) 50 ML IVPB SCH (05:32)
[2018-07-18] MEDS: NICOTINE (14 MG/24 HR) PATCH TRANSDERM SCH (08:08)
[2018-07-18] MEDS: AMLODIPINE 10 MG TAB PO SCH (08:09)
[2018-07-18 08:15] VITALS: BP 130/82; PULSE 80; RESP 18
--- NOTE | 2018-07-18 08:44 | CONS ---
Assessment/Plan Assessment/Plan Hospital Course (Demo Recall) 62 yo female with h/o breast cancer had severe drop in HH requiring blood transfusion Interval hx: Pt denies any hematochezia or melena. No nausea or abdominal pain. Clean and dry dressings on chest. Denies dizziness, fatigue. Denies any problems with her liver. 1. Bilateral mastectomy for breast cancer. 2. Chest wall cystic lesion resection. 3. Anemia requiring blood transfusion. -drop in hgb from 10.4 to 8.8->8.9 -Iron and TIBC both low -Retic 5.4 4. Hypertension. 5. S/P colonoscopy- polypectomy of 2 polyps. -Father had colon cancer -Polyp was tubular adenoma and leiomyoma. 6. Abnormal LFTs. AST 74 and Alk phos 210 likely due to fatty liver -trending down 7. Fatty liver. US of abdomen shows: 1. Sludge is identified within the gallbladder. There is no gallbladder wall thickening or pericholecystic fluid. 2. Common bile duct is mildly dilated measuring 7.1 mm. If indicated this can be better evaluated with MRCP. 3. Fatty change of the liver. Pathology from colonoscopy: A-Colon polypectomy: -- Diminutive tubular adenoma. -- Normal mucosa is also present. -- There is no evidence of malignancy. B-Rectal polypectomy: -- Leiomyoma of the muscularis mucosa. -- No adenoma is identified in deep sections through the block. -- There is no evidence of malignancy. Plan Monitor H&H closely Patient needs repeat colonoscopy in 2 years Recommend Iron supplementation Check LFTs in am, Pt should follow up with Dr. Smith as an outpatient. She has his name and office phone number. Pt examined and plan of care discussed with Dr. Smith Consultation Date/Type/Reason Admit Date/Time Jul 06, 2018 at 06:16 Initial Consult Date Date/Time of Note DATE: 07/18/18 TIME: 08:43 Exam/Review of Systems Exam Vitals Vital Signs Date Temp Pulse Resp B/P (MAP) Pulse Ox O2 O2 Flow FiO2 Time Delivery Rate 07/18/18 98.1 80 18 130/82 96 08:15 (98) 07/16/18 Room Air 08:32 Intake and Output 07/17/18 07/17/18 07/18/18 1515:00 23:00 07:00 IntakeIntake Total 370 ml 550 ml 50 ml OutputOutput Total 170 ml 460 ml 34 ml BalanceBalance 200 ml 90 ml 16 ml Constitutional: alert, oriented Psych: no complaints Head: normocephalic Eyes: nl sclera, PERRL Respiratory: clear to auscultation Cardiovascular: regular rate and rhythm Gastrointestinal: soft, non-tender Musculoskeletal: nl extremities to inspection, muscle weakness Neurological: nl mental status Results Result Diagram: 07/18/18 0511 07/18/18 0511 Results 24hrs Laboratory Tests Test 07/18/18 05:11 White Blood Count 6.1 # Red Blood Count 2.55 L Hemoglobin 8.9 L Hematocrit 27.8 L Mean Corpuscular Volume 109.0 H Mean Corpuscular Hemoglobin 34.9 H Mean Corpuscular Hemoglobin Concent 32.0 Red Cell Distribution Width 16.3 H Platelet Count 169 Mean Platelet Volume 10.0 Immature Granulocytes % 0.300 Neutrophils % 68.4 Lymphocytes % 21.2 Monocytes % 8.3 Eosinophils % 1.1 Basophils % 0.7 Nucleated Red Blood Cells % 0.0 Immature Granulocytes # 0.020 Neutrophils # 4.2 Lymphocytes # 1.3 Monocytes # 0.5 Eosinophils # 0.1 Basophils # 0.0 Nucleated Red Blood Cells # 0.0 Sodium Level 139 Potassium Level 3.9 Chloride Level 112 H Carbon Dioxide Level 22 Anion Gap 5 Blood Urea Nitrogen 12 Creatinine 0.93 Est Glomerular Filtrat Rate mL/min > 60 Glucose Level 74 Calcium Level 8.3 L Total Bilirubin 0.1 L Direct Bilirubin 0.00 Indirect Bilirubin 0.1 Aspartate Amino Transf (AST/SGOT) 27 Alanine Aminotransferase (ALT/SGPT) 12 L Alkaline Phosphatase 137 H Total Protein 4.2 L Albumin 1.8 L Globulin 2.40 Albumin/Globulin Ratio 0.75 Medications Medication Current Medications Ondansetron HCl (Zofran Inj) 4 mg Q6H PRN IV NAUSEA AND/OR VOMITING; Start 07/06/18 at 15:30 Zolpidem Tartrate (Ambien) 5 mg HS PRN PO INSOMNIA Last administered on 07/17/18at 22:01; Admin Dose 5 MG; Start 07/06/18 at 22:30 Acetaminophen/ Hydrocodone Bitart ([place] (5/325)) 1 tab Q4H PRN PO MODERATE PAIN LEVEL 4-6 Last administered on 07/18/18at 06:27; Admin Dose 1 TAB; Start 07/07/18 at 19:30 Lorazepam (Ativan) 0.5 mg Q6H PRN PO ANXIETY Last administered on 07/10/18 15:21; Admin Dose 0.5 MG; Start 07/10/18 at 12:30 Docusate Sodium (Colace) 100 mg HS PO Last administered on 07/17/18 22:02; Admin Dose 100 MG; Start 07/10/18 at 21:00 Amlodipine Besylate (Norvasc) 10 mg DAILY PO Last administered on 07/18/18 08:09; Admin Dose 10 MG; Start 07/10/18 at 19:30 Cefazolin Sodium 50 ml @ 100 mls/hr Q8 IVPB Last administered on 07/18/18 05:32; Admin Dose 100 MLS/HR; Start 07/11/18 at 05:00 Nicotine (Nicoderm 14 Mg/ 24hr) 1 patch DAILY TRANSDERM Last administered on 07/18/18 08:08; Admin Dose 1 PATCH; Start 07/15/18 at 09:00 Ferric Sodium Gluconate Complex 125 mg/Sodium Chloride 100 ml @ 100 mls/hr DAILY@1300 IVPB Last administered on 07/17/18 15:10; Admin Dose 100 MLS/HR; Start 07/17/18 at 14:00; Stop 07/19/18 at 13:59 JUDY PATTERSON Jul 18, 2018 08:44
[2018-07-18] MEDS: SOD FERRIC GLUC COMPLX 125 MG in SOD CHLORIDE 0.9% 100 ML IVPB SCH (13:18)
[2018-07-18] MEDS ORDERED: AMLO-147 PO (14:17)
[2018-07-18] MEDS ORDERED: DOCU-144 PO (14:17)
[2018-07-18] MEDS ORDERED: FER325 PO (14:17)
[2018-07-18] MEDS ORDERED: Nicotine (14 Mg/24 Hr) TRANSDERM (14:17)
[2018-07-18 14:48] VITALS: BP 127/67; PULSE 89; RESP 20
[2018-07-18] MEDS ORDERED: ZOLP5TAB PO (15:41)
--- NOTE | 2018-07-18 23:35 | DS ---
Date/Time of Note Date/Time of Note DATE: 07/18/18 TIME: 23:31 Discharge Summary Admission/Discharge Info Admit Date/Time Jul 06, 2018 at 06:16 Discharge Date/Time Jul 18, 2018 at 16:15 Patient Condition: Stable Hx of Present Illness The patient is a 62-year-old female who was seen by Dr. Webber as an outpatient. The patient apparently had a screening mammography and was found to have bilateral breast cancer. The patient also had a presternal cystic mass and was brought in to hospital today and underwent left needle-directed partial mastectomy with axillary dissection right needle-directed partial mastectomy with axillary dissection, resection of presternal chest mass with local skin flap advancement closure. The patient has significant postoperative pain and is waiting for further evaluation and management. The patient denies history of headache. No history of recent fever or chills. No history of abdominal pain. No history of vomiting. No history of focal leg weakness. No history of headache, dizziness, syncope. The patient denies history of recent urinary or bowel complaint. Respirations were unremarkable. Hospital Course - Bilateral breast cancer, status post bilateral partial mastectomies. S/p antibiotic. - Chest wall dermoid cyst, status post resection. - Anemia requiring blood transfusion. Dr. Smith is following in gastroentero logy consultation. - S/P colonoscopy- with polypectomy of 2 polyps. Polyp was tubular adenoma and leiomyoma. - Abnormal LFTs likely due to fatty liver, trending down. - Hypertension. Continue Norvasc. - Tobacco dependence, continue nicotine patch, patient decided to quit smoking, d/sandoval with nicotine patch prescription. Plan of care discussed with Dr. Goodwin. Home Meds Active Scripts Zolpidem Tartrate (Ambien Jose) 5 Mg Tablet, 5 MG PO HS PRN for INSOMNIA, #30 TAB Prov:GABRIEL GARCIA 07/18/18 Ferrous Sulfate* (Ferrous Sulfate*) 325 Mg Tabec, 325 MG PO BID for 30 Days, TAB Prov:GABRIEL GARCIA 07/18/18 Docusate Sodium* (Colace*) 100 Mg Capsule, 100 MG PO HS for 30 Days, CAP Prov:GABRIEL GARCIA 07/18/18 Amlodipine Besylate* (Amlodipine Besylate*) 10 Mg Tablet, 10 MG PO DAILY for 30 Days, TAB Prov:GABRIEL GARCIA 07/18/18 [Nicotine (14 Mg/24 Hr)] 1 PATCH PATCH No Conflict Check, 1 PATCH TRANSDERM DAILY for 30 Days Prov:GABRIEL GARCIA 07/18/18 Hydrocodone/Acetaminophen ([place] 5-325 Tablet) 1 Each Tablet, 1 EACH PO Q6, #14 TAB Prov:HUBERT MALDONADOBIR 07/09/18 Cephalexin* (Keflex*) 500 Mg Capsule, 500 MG PO Q6 for 7 Days, CAP Prov:NIKKIVadimCOBYELIJAH 07/09/18 Follow-up Plan DC with home health PT and wound care, follow-up with Dr. Webber in 1 week, f/up with Dr Smith in 2-3 weeks, colonoscopy recommended in 2 years Primary Care Provider Not On Staff Doctor Time spent on discharge: > 30 minutes Pending Labs Laboratory Tests Test 07/18/18 05:11 White Blood Count 6.1 10^3/ul (4.8-10.8) Red Blood Count 2.55 10^6/ul (4.20-5.40) Hemoglobin 8.9 g/dl (12.0-16.0) Hematocrit 27.8 % (37.0-47.0) Mean Corpuscular Volume 109.0 fl (82.0-101.0) Mean Corpuscular Hemoglobin 34.9 pg (29.0-33.0) Mean Corpuscular Hemoglobin Concent 32.0 g/dl (32.0-37.0) Red Cell Distribution Width 16.3 % (11.5-14.5) Platelet Count 169 10^3/UL (140-415) Mean Platelet Volume 10.0 fl (7.4-10.4) Immature Granulocytes % 0.300 % (0.001-0.429) Neutrophils % 68.4 % (39.0-77.0) Lymphocytes % 21.2 % (15.0-51.0) Monocytes % 8.3 % (0.0-11.0) Eosinophils % 1.1 % (0.0-7.0) Basophils % 0.7 % (0.0-2.0) Nucleated Red Blood Cells % 0.0 /100WBC (0.0-0.0) Immature Granulocytes # 0.020 10^3/ul (0.0-0.031) Neutrophils # 4.2 10^3/ul (1.6-7.5) Lymphocytes # 1.3 10^3/ul (0.8-2.9) Monocytes # 0.5 10^3/ul (0.3-0.9) Eosinophils # 0.1 10^3/ul (0.0-0.5) Basophils # 0.0 10^3/ul (0.0-0.1) Nucleated Red Blood Cells # 0.0 10^3/ul (0.0-0.0) Sodium Level 139 mmol/L (135-144) Potassium Level 3.9 mmol/L (3.5-5.1) Chloride Level 112 mmol/L (97-110) Carbon Dioxide Level 22 mmol/L (21-31) Anion Gap 5 (5-13) Blood Urea Nitrogen 12 mg/dl (7-20) Creatinine 0.93 mg/dl (0.44-1.00) Est Glomerular Filtrat Rate mL/min > 60 mL/min (>60) Glucose Level 74 mg/dl (70-220) Calcium Level 8.3 mg/dl (8.4-10.2) Total Bilirubin 0.1 mg/dl (0.2-1.3) Direct Bilirubin 0.00 mg/dl (0.00-0.20) Indirect Bilirubin 0.1 mg/dl (0-1.1) Aspartate Amino Transf (AST/SGOT) 27 IU/L (15-46) Alanine Aminotransferase (ALT/SGPT) 12 IU/L (13-69) Alkaline Phosphatase 137 IU/L (42-121) Total Protein 4.2 g/dl (6.1-8.1) Albumin 1.8 g/dl (3.3-4.9) Globulin 2.40 g/dl (1.3-3.2) Albumin/Globulin Ratio 0.75 GABRIEL GARCIA Jul 18, 2018 23:35
== END 2018-07-18 16:15 | disposition home health service (06) | DRG 571 ==
LOC: REC 06:16 → EDSTATUS 13:30 → 2NE 17:15
PROVIDERS: ADMIT Surgery Surgical Oncology; ATTEND Surgery Surgical Oncology
PROC: 0JB60ZZ Excision of Chest Subcutaneous Tissue and Fascia, Open Approach (ICD-10-PCS; 2018-07-06)
PROC: 07B60ZX Excision of Left Axillary Lymphatic, Open Approach, Diagnostic (ICD-10-PCS; 2018-07-06)
PROC: 07B50ZX Excision of Right Axillary Lymphatic, Open Approach, Diagnostic (ICD-10-PCS; 2018-07-06)
PROC: 0HBV0ZZ Excision of Bilateral Breast, Open Approach (ICD-10-PCS; principal; 2018-07-06 13:30)
PROC: 30233N1 Transfusion of Nonautologous Red Blood Cells into Peripheral Vein, Percutaneous Approach (ICD-10-PCS; 2018-07-10)
PROC: 0DBH8ZX Excision of Cecum, Via Natural or Artificial Opening Endoscopic, Diagnostic (ICD-10-PCS; 2018-07-13)
PROC: 0DBP8ZX Excision of Rectum, Via Natural or Artificial Opening Endoscopic, Diagnostic (ICD-10-PCS; 2018-07-13)
DX: C50.911 Malignant neoplasm of unspecified site of right female breast (principal); D62 Acute posthemorrhagic anemia; N17.9 Acute kidney failure, unspecified; C50.912 Malignant neoplasm of unspecified site of left female breast; I10 Essential (primary) hypertension; Z87.891 Personal history of nicotine dependence; J44.9 Chronic obstructive pulmonary disease, unspecified; D53.9 Nutritional anemia, unspecified; D36.7 Benign neoplasm of other specified sites; Z80.0 Family history of malignant neoplasm of digestive organs; D12.0 Benign neoplasm of cecum; K57.30 Diverticulosis of large intestine without perforation or abscess without bleeding; D12.8 Benign neoplasm of rectum
CPT/HCPCS: 36430; 71045; 76705; 80048; 80053; 82270; 82378; 82607; 82728; 82746; 83540; 84443; 85025; 85045; 85610; 85730; 86850; 86900; 86901; 86920; 88305; 88307; 93005; 97116; 97162; 97530; J0690; J1100; J1170; J1885; J1940; J2250; J2270; J2405; J2710; J2765; J2916; J3480; J7030; P9016; Q9968